=== PATIENT | male | born 1990 | race Caucasian/White ===

== ENCOUNTER 2019-12-29 12:48 | Emergency (ER) | payer SELFPAY ==
[2019-12-29 12:52] VITALS: BP 143/79; PULSE 76; RESP 14; TEMP 36.8; O2SAT 97; BMI 25.0
[2019-12-29 13:02] VITALS: BP 95/57; PULSE 71; RESP 18; TEMP 36.9; O2SAT 95
--- NOTE | 2019-12-29 13:04 | PC.NURSE ---
STATES BRIGHT RED BLOOD STOOLS FOR ONE WEEK. CRAMPING, THEN HAVE A BM. NO RELIEF.
--- NOTE | 2019-12-29 13:07 | CTR_ITS ---
PROCEDURE INFORMATION: Exam: CT Abdomen And Pelvis With Contrast Exam date and time: 12/29/2019 1:27 PM Age: 29 years old Clinical indication: Abdominal pain; Generalized; Patient HX: C/O mid abd pain/cramping w bright red stool intermittent x 2 month worsening last week; Additional info: Abd pain. Gi bleeding TECHNIQUE: Imaging protocol: Computed tomography of the abdomen and pelvis with intravenous contrast. Radiation optimization: All CT scans at this facility use at least one of these dose optimization techniques: automated exposure control; mA and/or kV adjustment per patient size (includes targeted exams where dose is matched to clinical indication); or iterative reconstruction. Contrast material: OMNI 300; Contrast volume: 95 ml; Contrast route: 20G; COMPARISON: No relevant prior studies available. RADIATION DOSE METRICS: Total DLP: 797.52 mGy-cm FINDINGS: Liver: Normal. No mass. Gallbladder and bile ducts: Normal. No calcified stones. No ductal dilation. Pancreas: Normal. No ductal dilation. Spleen: One or more accessory splenules. 13.3 cm borderline to mild splenomegaly. Adrenals: Normal. No mass. Kidneys and ureters: Normal. No hydronephrosis. Stomach and bowel: Jejunal bowel wall thickening consistent with moderate to severe jejunitis. Appendix: No evidence of appendicitis. Intraperitoneal space: Unremarkable. No free air. No significant fluid collection. Vasculature: Unremarkable. No abdominal aortic aneurysm. Lymph nodes: Unremarkable. No enlarged lymph nodes. Bladder: Unremarkable as visualized. Reproductive: Unremarkable as visualized. Bones/joints: Mild posterior central disc protrusion at L4-L5. Soft tissues: Unremarkable. CT/CT abdomen pelvis w con* [id number] IMPRESSION: 1. 13.3 cm borderline to mild splenomegaly. 2. Jejunal bowel wall thickening consistent with moderate to severe jejunitis. Radiation Dose CTDIVOL = (mGy): DLP = 797.52 (mGy-cm)
[2019-12-29] MEDS: iohexol 300 mg/mL 100 mL Btl IV (13:43)
[2019-12-29 13:44] LABS: Basophils # 0.1 10^3/uL (0.0-0.1); Basophils % 0.7 %; Eosinophils % 0.4 %; Hematocrit 47.2 % (42.0-52.0); Hemoglobin 15.6 g/dL (11.7-16.6); Lymphocytes # 1.2 10^3/uL (0.8-4.8); Mean Corpuscular HGB Conc 33.1 g/dL (30.0-36.0); Mean Corpuscular Hemoglobin 30.2 pg (28.0-34.0); Mean Corpuscular Volume 91.5 fL (80-94); Mean Platelet Volume 10.4 fL (7.4-10.4); Monocytes # 0.7 10^3/uL (0.2-0.9); Monocytes % 7.1 %; Neutrophils # 7.6 10^3/uL (1.8-7.7); Neutrophils % 79.4 %; Nucleated Red Blood Cells % 0 %; Platelet Count 250 10^3/cmm (130-400); Red Blood Count 5.16 10^6/uL (4.1-5.3); Red Cell Distribution Width 12.5 % (12.1-15.1); White Blood Count 9.6 10^3/uL (4.0-10.0)
[2019-12-29 13:45] LABS: Partial Thromboplastin Time 24.7 SECONDS (23.9-36.7)
[2019-12-29 13:55] LABS: Alanine Aminotransferase 14 U/L (0-41); Albumin Level 4.5 g/dL (3.5-5.2); Alkaline Phosphatase 55 IU/L (40-130); Aspartate Amino Transferase 24 U/L (0-40); Blood Urea Nitrogen 13 mg/dL (6-20); Calcium 10.2 mg/dL (8.5-10.5); Carbon Dioxide 26 mmol/L (22-29); Chloride 98 mmol/L (98-107); Globulin 3.1 g/dL (1.3-4.6); Glomerular Filtration Rate 87.7 mL/min (90-130); Glucose 104 mg/dL (65-115); Lipase 14 U/L (13-60); Osmolality Calculated 278 mOsm/kg (285-295); Sodium 136 mmol/L (136-145); Total Bilirubin 1.8 mg/dL (0.15-1.2); Total Protein 7.6 g/dL (6.6-8.7)
[2019-12-29] MEDS: ondansetron 2 mg/ML SDV 2 mL 8 MG IVP (14:15)
[2019-12-29] MEDS: metroNIDAZOLE 500 MG Tablet PO (14:45)
[2019-12-29] MEDS: ciprofloxacin 500 mg Tablet PO (14:45)
[2019-12-29] MEDS: dexamethasone 4 mg/mL INJ 8 MG IVP (14:45)
[2019-12-29 14:52] VITALS: BP 113/64; PULSE 60; RESP 16; O2SAT 97
[2019-12-29 14:58] VITALS: BP 113/64; PULSE 60; RESP 16; O2SAT 97
[2019-12-29 15:02] LABS: Erythrocyte Sedimentation Rate 3 mm/hr (0-10)
--- NOTE | 2019-12-29 15:11 | W.ED.GIBLEED ---
HPI - GI Bleed General: Chief complaint: GI Bleed Stated complaint: rectal bleeding Time Seen by Provider: 12/29/19 13:04 History of Present Illness: HPI Narrative: 29-year-old male complains of generalized belly pain, mainly in his epigastrium, with bloody stool for the last week. He says his belly is hurt on and off for the last month. He has had a lot of increased stress. He is noticed red blood with stool for the last week consistently. Mainly on the paper. MD complaint: blood on toilet paper and gross hematochezia (mild) Onset (ago): week(s) Pain Consistency: intermittent Severity: moderate Relieving factors: none Exacerbating factors: none Associated symptoms: Reports nausea; Denies epistaxis, fever(s), headache(s), rash or vomiting Review of Systems Const: Denies: fever(s) Eyes: Denies: change in vision ENMT: Denies: bleeding gums, epistaxis or sinus pain Card: Denies: chest pain, palpitations, irregular heart rhythm or edema Resp: Denies: dyspnea, productive cough, non-productive cough or wheezing GI: Reports: nausea; Denies: vomiting : Denies: difficulty urinating, dysuria or hematuria Musc: Denies: neck pain or back pain Skin/Breast: Denies: rash, pruritus or erythema Neuro: Denies: headache(s), dizziness or vertigo Psych: Denies: anxiety PFSH ED PFSH: Social History Smoking and tobacco status: current every day smoker Physical Exam Const: GENERAL APPEARANCE: well developed ORIENTATION/CONSCIOUSNESS: Yes oriented to person, Yes oriented to place and Yes oriented to time HENMT: COMMON NORMALS: external ears normal and Normal external nose present FACE & SINUS: normal facial exam NOSE: Normal external nose present and No nasal discharge present EXTERNAL EAR: Yes external ears normal MOUTH: tongue normal Eye: COMMON NORMALS: Equal, round and reactive pupils present, EOMs intact bilaterally and conjunctivae normal EYELID: eyelids normal CONJUNCTIVA: Yes conjunctivae normal PUPIL: Yes Equal, round and reactive pupils present Neck/C-Spine: GENERAL: No tracheal deviation Chest: COMMONS NORMALS: normal inspection of the chest CHEST: No tenderness Resp: COMMON NORMALS: clear to auscultation bilaterally EFFORT & INSPECTION: No tachypneic, No respiratory distress, No retractions, No uses accessory muscles and No tracheal deviation AUSCULTATION: clear to auscultation bilaterally, no rhonchi, no wheezes and lung sounds not diminished Cardio: COMMON NORMALS: regular rate and regular rhythm RATE: regular rate RHYTHM: regular rhythm HEART SOUNDS: no murmurs PERIPHERAL PULSES: radial pulses present GI: INSPECTION: No abdominal distension AUSCULTATION: No Hyperactive bowel sounds present and No Hypoactive bowel sounds present PALPATION: Yes Tenderness to palpation present (GI) (epigastric), No Guarding due to palpation present (GI) and No Rigid due to palpation PERCUSSION: no dullness to percussion and no tympanic to percussion Neuro: SENSORIUM/ORIENTATION: Yes oriented to person, Yes oriented to place and Yes oriented to time Psych: COMMON NORMALS: mental status grossly normal Skin: COMMON NORMALS: no rashes or lesions noted GENERAL SKIN EXAM: no rashes or lesions noted Course Vital Signs: Vital signs: Vital Signs Temperature 98.4 F 12/29/19 13:02 Pulse Rate 60 12/29/19 14:58 Respiratory Rate 16 12/29/19 14:58 Blood Pressure 113/64 12/29/19 14:58 Pulse Oximetry 97 12/29/19 14:58 MDM - GI Bleed MDM Narrative: Medical decision making narrative: 29-year-old male with red blood in stool. No active bleeding here. Normal rectal exam. White count is 9.6. Hemoglobin is 15.6. Other laboratory including CRP is negative. He has focal jejunitis on CT scan without perforation. Could be infectious versus inflammatory. Lab Data: Labs: Lab Results 12/29/19 12/29/19 12/29/19 Range/Units 13:17 13:17 13:17 WBC 9.6 (4.0-10.0) 10^3/ uL RBC 5.16 (4.1-5.3) 10^6/u L Hgb 15.6 (11.7-16.6) g/dL Hct 47.2 (42.0-52.0) % MCV 91.5 (80-94) fL MCH 30.2 (28.0-34.0) pg MCHC 33.1 (30.0-36.0) g/dL RDW 12.5 (12.1-15.1) % Plt Count 250 (130-400) 10^3/c mm MPV 10.4 (7.4-10.4) fL Neut % (Auto) 79.4 % Lymph % (Auto) 12.0 % [place] % (Auto) 7.1 % Eos % (Auto) 0.4 % Baso % (Auto) 0.7 % Neut # (Auto) 7.6 (1.8-7.7) 10^3/u L Lymph # (Auto) 1.2 (0.8-4.8) 10^3/u L [place] # (Auto) 0.7 (0.2-0.9) 10^3/u L Eos # (Auto) 0.0 (0.0-0.8) 10^3/u L Baso # (Auto) 0.1 (0.0-0.1) 10^3/u L Nucleated RBC % (a uto) 0 % Nucleated RBCs # 0.0 /100WBC ESR 3 (0-10) mm/hr PT 13.50 H (10.5-13.3) SECO NDS INR 1.00 (0.8-1.2) APTT 24.7 (23.9-36.7) SECO NDS Sodium (136-145) mmol/L Potassium (3.5-5.1) mmol/L Chloride (98-107) mmol/L Carbon Dioxide (22-29) mmol/L Anion Gap (5-19) BUN (6-20) mg/dL Creatinine (0.7-1.2) mg/dL GFR Calculation (90-130) mL/min Glucose (65-115) mg/dL Calculated Osmolal ity (285-295) mOsm/k g Calcium (8.5-10.5) mg/dL Total Bilirubin (0.15-1.2) mg/dL AST (0-40) U/L ALT (0-41) U/L Alkaline Phosphata se (40-130) IU/L C-Reactive Protein (0.0-4.9) mg/L Total Protein (6.6-8.7) g/dL Albumin (3.5-5.2) g/dL Globulin (1.3-4.6) g/dL Lipase (13-60) U/L 12/28/20 Range/Units 13:17 WBC (4.0-10.0) 10^3/ uL RBC (4.1-5.3) 10^6/u L Hgb (11.7-16.6) g/dL Hct (42.0-52.0) % MCV (80-94) fL MCH (28.0-34.0) pg MCHC (30.0-36.0) g/dL RDW (12.1-15.1) % Plt Count (130-400) 10^3/c mm MPV (7.4-10.4) fL Neut % (Auto) % Lymph % (Auto) % [place] % (Auto) % Eos % (Auto) % Baso % (Auto) % Neut # (Auto) (1.8-7.7) 10^3/u L Lymph # (Auto) (0.8-4.8) 10^3/u L [place] # (Auto) (0.2-0.9) 10^3/u L Eos # (Auto) (0.0-0.8) 10^3/u L Baso # (Auto) (0.0-0.1) 10^3/u L Nucleated RBC % (a uto) % Nucleated RBCs # /100WBC ESR (0-10) mm/hr PT (10.5-13.3) SECO NDS INR (0.8-1.2) APTT (23.9-36.7) SECO NDS Sodium 136 (136-145) mmol/L Potassium 4.0 (3.5-5.1) mmol/L Chloride 98 (98-107) mmol/L Carbon Dioxide 26 (22-29) mmol/L Anion Gap 16.0 (5-19) BUN 13 (6-20) mg/dL Creatinine 1.0 (0.7-1.2) mg/dL GFR Calculation 87.7 L (90-130) mL/min Glucose 104 (65-115) mg/dL Calculated Osmolal ity 278 L (285-295) mOsm/k g Calcium 10.2 (8.5-10.5) mg/dL Total Bilirubin 1.8 H (0.15-1.2) mg/dL AST 24 (0-40) U/L ALT 14 (0-41) U/L Alkaline Phosphata se 55 (40-130) IU/L C-Reactive Protein 1.0 (0.0-4.9) mg/L Total Protein 7.6 (6.6-8.7) g/dL Albumin 4.5 (3.5-5.2) g/dL Globulin 3.1 (1.3-4.6) g/dL Lipase 14 (13-60) U/L Discharge Plan Discharge Patient Disposition: Home, Self-Care Clinical Impression: Jejunitis Condition: Stable Prescriptions: New Cipro 500 mg tablet 500 mg PO Q12H Qty: 14 RF: 0 Flagyl 500 mg tablet 500 mg PO Q8H 7 Days Qty: 21 RF: 0 Medrol (Bertin) 4 mg tablets,dose pack See Rx Instructions .ROUTE .COMPLEX Qty: 21 RF: 0 No Action No Known Home Medications RF: 0 Discharge Orders: Discharge Order (Routine); Ordered 12/29/19 Ordered By: Jg Patton Referrals: Jennifer Good MD [Family Provider] - Bryn Regan FNP [Primary Care Provider] - Discharge Diet: Usual diet Discharge Activity: Increase activity as tolerated Patient Instructions: Infectious Colitis (ED) Activity Restrictions/Additional Instructions: Return for worsening pain despite treatment, worsening bleeding with stool, especially passing large clots, fever greater than 100 despite antibiotics, other concerning symptoms. Discharge Date/Time: 12/29/19 14:58 Coding Level of Care Code ED Extracorporeal Circulation Specialist for Loy Billingsley
[2019-12-29 15:16] LABS: Add Urine Microscopic? YES; Bilirubin Urine Neg (NEGATIVE); Blood Urine Trace (Negative); Glucose Urine UA Norm (Normal); Ketones Urine Negative (Negative); Leukocyte Esterase Urine Negative (Negative); Nitrate Urine Negative (Negative); Protein Urine Neg (Negative); Sulfosalicylic Acid Urine Negative (Negative); Urine Appearance Clear (CLEAR); Urine Color Yellow (Yellow); Urobilinogen Urine Norm (Negative); pH Urine 8 (5-7)
[2019-12-29 15:17] LABS: Add Urine Culture? No; Mucus Urine TRACE
== END 2019-12-29 14:58 | disposition home or self-care (01) ==
PROVIDERS: Emergency Provider Emergency Medicine; Family Provider Pediatrics Adolescent Medicine; PCP Nurse Practitioner Family
DX: K52.9 Noninfective gastroenteritis and colitis, unspecified (principal); F17.210 Nicotine dependence, cigarettes, uncomplicated
CPT/HCPCS: 12345; 74177; 80053; 81001; 83690; 85025; 85610; 85651; 85730; 86140; 96374; 96375; 99282; 99283; J1100; J2405; Q9967

== ENCOUNTER 2020-02-18 15:23 | Inpatient (IN) | payer SELFPAY ==
[2020-02-18 15:31] VITALS: BP 121/73; PULSE 60; RESP 14; TEMP 37.3; O2SAT 98; BMI 24.1
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
--- NOTE | 2020-02-18 15:48 | W.ED.PSYCH ---
HPI - Psych General: Chief Complaint: Psychiatric Symptoms Stated Complaint: mhe Time Seen by Provider: 02/18/20 15:44 Source: patient Mode of arrival: ambulatory Limitations: no limitations History of Present Illness: HPI Narrative: Lester is a 29-year-old male who comes in complaining of suicidal ideation. He states he feels overwhelmed by his life circumstances and has thoughts about wanting to kill himself. Patient denies any previous attempted previous hospitalization for suicidal ideation. He denies any other complaints or concerns. He states this time he wants to come in and get help because he does not feel safe at home. Review of Systems Const: Denies: fever(s), chills, body aches, fatigue, malaise or diaphoresis Eyes: Denies: change in vision, blurry vision, blind spots, photophobia, eye discharge or eye redness ENMT: Denies: throat pain, odynophagia, hoarseness, swelling of lips/tongue, oral sores, ear or mastoid pain, ear discharge, change in hearing or nasal discharge Card: Denies: chest pain, palpitations, irregular heart rhythm, edema, lightheadedness, syncope, pre-syncope, dyspnea on exertion or orthopnea Resp: Denies: dyspnea, productive cough, non-productive cough, wheezing, hemoptysis or chest congestion GI: Denies: abdominal pain, nausea, vomiting, hematemesis, coffee ground emesis, heartburn, diarrhea, constipation, GI cramping, hematochezia or melena : Denies: flank pain, dysuria, urinary frequency, urinary urgency or hematuria Musc: Denies: neck pain, back pain, extremity pain, extremity swelling, joint pain, joint swelling, joint redness, joint warmth or joint stiffness Skin/Breast: Denies: rash, pruritus, erythema, skin tenderness or jaundice Neuro: Denies: headache(s), numbness in extremities, weakness in extremities, sensory changes, lack of coordination, difficulty walking, dizziness, vertigo, confusion, Slurred speech present or seizure-like activity Vj/Lymph: Denies: easy bruising, easy bleeding, petechiae, purpura or enlarged lymph nodes All/Imm: Denies: urticaria, throat swelling, tongue swelling, facial swelling or acute wheezing PFSH ED PFSH: Medical History ADHD Bipolar affect, depressed Social History Smoking and tobacco status: current every day smoker Physical Exam Const: COMMON NORMALS: no acute distress, patient oriented x3, no limitations, healthy appearing and well nourished GENERAL APPEARANCE: cooperative, well kempt and well developed HENMT: COMMON NORMALS: normocephalic, atraumatic, external ears normal, EAC's normal and Normal external nose present HEAD & SCALP: normal to inspection, normocephalic and atraumatic FACE & SINUS: normal facial exam, face symmetric and other (Left TMJ pain on palpation.) NOSE: Normal external nose present and Normal nares present EXTERNAL EAR: Yes external ears normal EXTERNAL AUDITORY CANAL: EAC's normal MOUTH: Normal oral and palatal mucosa present, lip normal and tongue normal Eye: COMMON NORMALS: Equal, round and reactive pupils present and conjunctivae normal GENERAL EYE: appearance normal, both eyes and all related structures ALIGNMENT: Yes alignment normal PERIORBITAL: periorbital findings normal EYELID: eyelids normal CONJUNCTIVA: Yes conjunctivae normal SCLERA: sclerae normal PUPIL: Yes Equal, round and reactive pupils present Neck/C-Spine: COMMON NORMALS: full ROM, no lymphadenopathy, supple, no meningeal signs and no JVD GENERAL: Yes normal visual inspection and Yes trachea midline Chest: COMMONS NORMALS: normal inspection of the chest and normal palpation of entire chest wall Resp: COMMON NORMALS: normal respiratory effort, No retractions and No use of accessory muscles EFFORT & INSPECTION: Yes able to speak in complete sentences and Yes symmetric chest movement AUSCULTATION: no crackles, no rales, no rhonchi and no wheezes Cardio: COMMON NORMALS: no JVD, regular rate, regular rhythm, S1 normal heart sound present and S2 normal heart sound present RATE: regular rate RHYTHM: regular rhythm HEART SOUNDS: S1 normal heart sound present, S2 normal heart sound present, no click, no gallops, no murmurs, no rubs and abnormal split S2 GI: COMMON NORMALS: Soft to palpation and No hepatosplenomegaly present PALPATION: Yes Soft to palpation, No Tenderness to palpation present (GI), No Guarding due to palpation present (GI), No Rigid due to palpation, Yes No hepatosplenomegaly present, No Hernia present, No Palpable mass present and No Pulsatile mass present : COMMON NORMALS: Yes no CVA tenderness BLADDER/KIDNEY EXAM: Yes no CVA tenderness Back/Pelvis: COMMON NORMALS: no CVA tenderness, thoracic and lumbar spine normal to inspection, no thoracic nor lumbar tenderness and thoraco-lumbar ROM normal Extremity: COMMON NORMALS: normal to inspection, full ROM, capillary refill normal, no joint enlargement, no clubbing, cyanosis or edema and no calf tenderness Neuro: COMMON NORMALS: patient oriented x3, CN's II-XII intact bilaterally, moves all extremities, no focal motor deficits and no sensory deficits noted MENINGEAL SIGNS: Yes no meningeal signs SPEECH: speech normal Psych: COMMON NORMALS: mental status grossly normal, Normal thought process present, cooperative, normal affect, speech normal and activity/motor behavior normal APPEARANCE: Yes well kempt SPEECH: Yes normal speech THOUGHT PROCESS: Normal thought process present Skin: COMMON NORMALS: no rashes or lesions noted, turgor normal, no jaundice, no petechiae and no mottling GENERAL SKIN EXAM: no rashes or lesions noted and turgor normal MDM - Psych MDM Narrative: Medical decision making narrative: The case was reviewed with Dr. Mackey, he agrees to admission to the neuropsychiatric unit for stabilization. Lab Data: Labs: Lab Results 02/18/20 02/18/20 02/18/20 Range/Units 15:53 16:00 16:00 WBC 8.2 (4.0-10.0) 10^3/ uL RBC 5.00 (4.1-5.3) 10^6/u L Hgb 15.3 (11.7-16.6) g/dL Hct 46.1 (42.0-52.0) % MCV 92.2 (80-94) fL MCH 30.6 (28.0-34.0) pg MCHC 33.2 (30.0-36.0) g/dL RDW 12.0 L (12.1-15.1) % Plt Count 262 (130-400) 10^3/c mm MPV 10.1 (7.4-10.4) fL Neut % (Auto) 70.6 % Lymph % (Auto) 20.8 % [place] % (Auto) 6.0 % Eos % (Auto) 1.1 % Baso % (Auto) 1.1 % Neut # (Auto) 5.80 (1.8-7.7) 10^3/u L Lymph # (Auto) 1.7 (0.8-4.8) 10^3/u L [place] # (Auto) 0.5 (0.2-0.9) 10^3/u L Eos # (Auto) 0.1 (0.0-0.8) 10^3/u L Baso # (Auto) 0.1 (0.0-0.1) 10^3/u L Nucleated RBC % (a uto) 0 % Nucleated RBCs # 0.0 /100WBC Sodium 139 (136-145) mmol/L Potassium 3.8 (3.5-5.1) mmol/L Chloride 103 (98-107) mmol/L Carbon Dioxide 28 (22-29) mmol/L Anion Gap 11.8 (5-19) BUN 12 (6-20) mg/dL Creatinine 0.9 (0.7-1.2) mg/dL GFR Calculation 99.1 (90-130) mL/min Glucose 103 (65-115) mg/dL Calculated Osmolal ity 284 L (285-295) mOsm/k g Calcium 9.0 (8.5-10.5) mg/dL Total Bilirubin 1.1 (0.15-1.2) mg/dL AST 15 (0-40) U/L ALT 10 (0-41) U/L Alkaline Phosphata se 50 (40-130) IU/L Total Protein 6.9 (6.6-8.7) g/dL Albumin 4.4 (3.5-5.2) g/dL Globulin 2.5 (1.3-4.6) g/dL TSH 0.71 (0.27-4.20) uIU/ mL Salicylates < 0.3 L (3-10) mg/dL Urine Opiates Scre en Negative (Negative) ng/mL Acetaminophen < 5.0 L (10-30) ug/mL Ur Barbiturates Sc reen Negative (Negative) ng/mL Ur Phencyclidine S crn Negative (Negative) ng/mL Ur Amphetamines Sc reen Positive H (Negative) ng/mL U Benzodiazepines Scrn Negative (Negative) ng/mL Urine Cocaine Scre en Negative (Negative) ng/mL U Marijuana (THC) Screen Positive H (Negative) ng/mL Ethyl Alcohol < 10 (0-10) mg/dL Discharge Plan Discharge Patient Disposition: Admitted As Inpatient Admit Provider: Mick Mackey Clinical Impression: Suicidal ideation Condition: Stable Discharge Date/Time: 02/18/20 17:34 Coding Level of Care Code ED Recreational Programs Director for Loy Fwd Exam Comprehensive
[2020-02-18 16:06] LABS: Basophils # 0.1 10^3/uL (0.0-0.1); Basophils % 1.1 %; Eosinophils # 0.1 10^3/uL (0.0-0.8); Eosinophils % 1.1 %; Hematocrit 46.1 % (42.0-52.0); Hemoglobin 15.3 g/dL (11.7-16.6); Lymphocytes # 1.7 10^3/uL (0.8-4.8); Lymphocytes % 20.8 %; Mean Corpuscular HGB Conc 33.2 g/dL (30.0-36.0); Mean Corpuscular Hemoglobin 30.6 pg (28.0-34.0); Mean Corpuscular Volume 92.2 fL (80-94); Mean Platelet Volume 10.1 fL (7.4-10.4); Monocytes # 0.5 10^3/uL (0.2-0.9); Neutrophils % 70.6 %; Nucleated Red Blood Cells % 0 %; Platelet Count 262 10^3/cmm (130-400); White Blood Count 8.2 10^3/uL (4.0-10.0)
[2020-02-18 16:26] LABS: Amphetamines Screen Urine Positive (Negative); Barbiturates Screen Urine Negative (Negative); Benzodiazepines Screen Urine Negative (Negative); Cocaine Screen Urine Negative (Negative); Opiate Screen Urine Negative (Negative); PCP Screen Urine Negative (Negative); THC Screen Urine Positive (Negative)
[2020-02-18 16:34] LABS: Alanine Aminotransferase 10 U/L (0-41); Albumin Level 4.4 g/dL (3.5-5.2); Alkaline Phosphatase 50 IU/L (40-130); Anion Gap 11.8 (5-19); Aspartate Amino Transferase 15 U/L (0-40); Blood Urea Nitrogen 12 mg/dL (6-20); Carbon Dioxide 28 mmol/L (22-29); Chloride 103 mmol/L (98-107); Globulin 2.5 g/dL (1.3-4.6); Glomerular Filtration Rate 99.1 mL/min (90-130); Glucose 103 mg/dL (65-115); Osmolality Calculated 284 mOsm/kg (285-295); Potassium 3.8 mmol/L (3.5-5.1); Sodium 139 mmol/L (136-145); Thyroid Stimulating Hormone 0.71 uIU/mL (0.27-4.20); Total Bilirubin 1.1 mg/dL (0.15-1.2); Total Protein 6.9 g/dL (6.6-8.7)
[2020-02-18 16:58] LABS: Acetaminophen < 5.0 ug/mL (10-30); Alcohol Level < 10 mg/dL (0-10); Salicylate < 0.3 mg/dL (3-10)
[2020-02-18 17:32] VITALS: BP 124/87; PULSE 72; RESP 18; O2SAT 98
[2020-02-18 20:05] VITALS: BP 109/61; PULSE 57; RESP 16; TEMP 37; O2SAT 92
[2020-02-19 06:00] VITALS: BP 120/80; PULSE 86; RESP 13; TEMP 36.8; O2SAT 96
[2020-02-19] MEDS: acetaminophen 325 mg Tablet 650 MG PO ×2 (06:08→19:30)
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
[2020-02-19 14:00] VITALS: BP 114/59; PULSE 53; RESP 18; TEMP 36.5; O2SAT 99
[2020-02-19] MEDS: ARIPiprazole 10 mg Tablet 5 MG PO (16:46)
[2020-02-19 20:06] VITALS: BP 126/85; PULSE 78; RESP 16; TEMP 36.5; O2SAT 94
[2020-02-20 06:00] VITALS: BP 137/82; PULSE 82; RESP 15; TEMP 36.9; O2SAT 97
[2020-02-20] MEDS: ARIPiprazole 10 mg Tablet PO (08:10)
[2020-02-20] MEDS: nicotine 2 mg Gum BUCCAL (10:40)
--- NOTE | 2020-02-20 11:57 | PM.NPN ---
Subjective NPU Subjective: Interval history: Lester presents today reporting that he is open to medication. He continued to focus on something for focus yesterday. Later today, he agreed to a dose of Abilify and see how he did with it. It was a half dose. He reported it was not a problem, so we again discussed the risks, benefits, and alternatives of using the Abilify as a regular medication and he understood and agreed to proceed as is documented in this note. He continued to talk about the possibility of sober living treatment and today he was going to talk to the treatment team about what possibilities exist given his insurance situation. He reports he is eating okay. His sleep is a little tough. Mental Status Exam MSE Comments: This is a well-nourished, well-developed, white male, with adequate dress, grooming, and eye contact. No abnormal movements except for psychomotor retardation. Cooperative with exam in no acute distress. Speech was decreased rate and volume. Mood described as better, affect less odd. Thought process, less disorganized. Thought content: The patient endorsed suicidal ideation but denied homicidal ideation. There were no delusions reported, but he did have clear paranoia. He denied auditory or visual hallucinations, but he says he has had them. Attention and concentration were improving, and memory appear was more reliable, but none were formally tested. He is alert and oriented times three. Insight and judgment are limited but improving. Impulse control is impaired. Vitals/I&O/Wt Last Vital Signs Temp 98.5 F 02/20/20 06:00 Pulse 82 02/20/20 06:00 Resp 15 02/20/20 06:00 BP 137/82 02/20/20 06:00 Pulse Ox 97 02/20/20 06:00 Weight last 48 hrs Weight 83.007 kg Data NPU : 02/18/20 16:00 02/18/20 16:00 A&P Additional A&P Information (1) ADHD: (2) Bipolar affect, depressed: (3) Methamphetamine dependence: (4) Psychosis: (5) Suicidal ideation: Additional A&P Information This is a 29 year old, white male, with psychosis, methamphetamine use, and suicidal thinking, who presents confused but seeking treatment. Continue current medication. Start Abilify 10 mg by mouth every morning Encourage individual, group, and milieu therapy. Continue q 15-minute checks for safety. Will encourage him to attend sober living treatment at the highest level of care to which he is willing to commit. Involuntary Hold Information 96 Hour Hold: 96 Hour Involuntary Admission: No Attestations NPU Medical Necessity Statement*: Inpatient hospitalization is medically necessary, and the clinically appropriate intervention at this time. We will monitor medication and make adjustments as indicated. Likely length of stay 3-5 days. 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
[2020-02-20 14:00] VITALS: BP 116/67; PULSE 77; RESP 18; TEMP 37; O2SAT 96
[2020-02-20 21:28] VITALS: BP 109/71; PULSE 92; RESP 20; TEMP 36.9; O2SAT 99
[2020-02-21 05:03] VITALS: BP 109/71; PULSE 92; RESP 20; TEMP 36.9; O2SAT 99
[2020-02-21 06:14] VITALS: BP 112/72; PULSE 73; RESP 17; TEMP 37.1; O2SAT 98
[2020-02-21] MEDS: ARIPiprazole 10 mg Tablet PO (09:30)
--- NOTE | 2020-02-21 13:49 | PM.NPN ---
Subjective NPU Subjective: Interval history: Lester presents today reporting that he feels really well on the medication. He is certainly able to communicate much better than a couple days ago. He is able to navigate the unit and interact with others showing significant resolution in his disorganization. He is working with the child protective services social worker for a couple different options for rehab. It looks like one is becoming quite fruitful, and at least it appears that he will be able to interview and likely go there tomorrow. He is excited about the opportunity. He has still been in communication with his supports including his brother in [place]. He reports he is eating and sleeping well. Mental Status Exam MSE Comments: This is a well-nourished, well-developed, white male, with adequate dress, grooming, and eye contact. No abnormal movements except for improving psychomotor retardation. Cooperative with exam in no acute distress. Speech was more normal rate and volume. Mood described as pretty good, affect congruent. Thought process, organized. Thought content: The patient denied suicidal or homicidal ideation. There were no delusions reported, no significant paranoia noted or other delusional processes. He denied auditory or visual hallucinations. Attention and concentration were improving, and memory was more reliable, but none were formally tested. He is alert and oriented times three. Insight and judgment are improving. Impulse control is limited. Vitals/I&O/Wt Last Vital Signs Temp 98.5 F 02/21/20 05:03 Pulse 92 02/21/20 05:03 Resp 20 H 02/21/20 05:03 BP 109/71 02/21/20 05:03 Pulse Ox 99 02/21/20 05:03 Data NPU : 02/18/20 16:00 02/18/20 16:00 A&P Additional A&P Information (1) ADHD: (2) Bipolar affect, depressed: (3) Methamphetamine dependence: (4) Psychosis: (5) Suicidal ideation: This is a 29 year old, white male, with psychosis, methamphetamine use, and suicidal thinking, who presents confused but seeking treatment. Continue current medication. Encourage individual, group, and milieu therapy. Continue q 15-minute checks for safety. Will encourage him to attend sober living treatment at the highest level of care to which he is willing to commit. Involuntary Hold Information 96 Hour Hold: 96 Hour Involuntary Admission: No Attestations NPU Medical Necessity Statement*: Inpatient hospitalization is medically necessary, and the clinically appropriate intervention at this time. We will monitor medication and make adjustments as indicated. Likely length of stay 1-3 days. 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
[2020-02-21 14:00] VITALS: BP 105/70; PULSE 97; RESP 18; TEMP 36.7; O2SAT 96
[2020-02-21 20:28] VITALS: BP 118/86; PULSE 99; RESP 21; TEMP 36.9; O2SAT 97
[2020-02-21] MEDS: hyDROXYzine 25 mg Capsule 50 MG PO (21:12)
[2020-02-21] MEDS: trazodone 50 mg Tablet PO (21:13)
--- NOTE | 2020-02-22 04:19 | PC.NURSE ---
pt given PRN trazodone and vistaril at HS. no behavior issues noted.
[2020-02-22 06:00] VITALS: BP 102/74; PULSE 101; RESP 20; TEMP 36.9; O2SAT 95
[2020-02-22] MEDS: ARIPiprazole 10 mg Tablet PO (08:24)
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
[2020-02-22 10:49] VITALS: BP 102/74; PULSE 101; RESP 20; TEMP 36.9; O2SAT 95
--- NOTE | 2020-02-22 16:11 | PC.RESP ---
SMOKING CESSATION INFORMATION SENT TO PATIENT.
== END 2020-02-22 11:23 | disposition home or self-care (01) | DRG 885 ==
LOC: ER 16:12 → NP 17:13
PROVIDERS: Emergency Medicine; Admitting Provider Psychiatry & Neurology Psychiatry; Visit Provider Psychiatry & Neurology Psychiatry
DX: F23 Brief psychotic disorder (principal); R45.851 Suicidal ideations; F15.20 Other stimulant dependence, uncomplicated; F90.9 Attention-deficit hyperactivity disorder, unspecified type; F31.9 Bipolar disorder, unspecified; Z91.5 Personal history of self-harm; F17.210 Nicotine dependence, cigarettes, uncomplicated
CPT/HCPCS: 12345; 36415; 70486; 80053; 80306; 80307; 84443; 85025; 99284; G0378

== ENCOUNTER 2020-06-18 18:43 | Emergency (ER) | payer SELFPAY ==
[2020-06-18 19:13] VITALS: BP 113/71; PULSE 108; RESP 17; TEMP 36.8; O2SAT 97; BMI 23.7
--- NOTE | 2020-06-18 19:49 | XR_ITS ---
WS: [id number] Exam: XR chest 2V* [id number] Date/Time of Exam: 06/18/2020 8:00 PM Reason For Exam: cough/congestion No priors. Findings: The lungs are clear and fully expanded. Costophrenic angles are sharp. No infiltrates. Bronchovascula r relief appears normal. Cardiac silhouette is unremarkable. Bony elements are intact. XR/XR chest 2V* [id number] IMPRESSION: Unremarkable chest radiograph.
--- NOTE | 2020-06-18 19:51 | ED_ITS ---
HPI - General Adult General: Chief complaint: General Medical Stated complaint: SORE THROAT/NOT FEELING WELL Time Seen by Provider: 06/18/20 19:32 Source: patient Mode of arrival: ambulatory Limitations: no limitations History of Present Illness: HPI narrative: 30-year-old male patient presents to the emergency department with 2-day history of sore throat, swollen lymph nodes under the chin, cough with productive sputum. He is a 1 pack-a-day smoker. Reports chills but has not taken his temp. He denies contact with Covid positive individuals. Denies nausea vomiting. Onset (ago): day(s) (2) Severity: moderate Pain Consistency: constant Relieving factors: none Exacerbating factors: none Associated symptoms: Reports cough and fevers/chills; Deny chest pain, diaphoresis, dyspnea, headache(s), malaise, nausea, rash, palpitations or vomiting Treatments prior to arrival: none Review of Systems General: Reports: 10 or more systems reviewed and unremarkable except in HPI and below Const: Reports: chills; Denies: fever(s), body aches, fatigue, malaise or diaphoresis Eyes: Denies: blurry vision or eye redness ENMT: Reports: throat pain; Denies: hoarseness, swelling of lips/tongue, dental pain, disequilibrium, nasal discharge or nasal congestion Card: Denies: chest pain, palpitations or irregular heart rhythm Resp: Reports: productive cough and chest congestion; Denies: dyspnea, non-productive cough, wheezing or hemoptysis GI: Denies: abdominal pain, nausea or vomiting : Denies: dysuria Musc: Denies: back pain Skin/Breast: Denies: rash or pruritus Neuro: Denies: headache(s), weakness in extremities or behavioral changes Psych: Denies: anxiety or depression Vj/Lymph: Denies: easy bruising PFSH ED PFSH: Medical History (Updated 06/18/20 @ 21:30 by LUCA Mejia) ADHD Bipolar affect, depressed Social History Smoking and tobacco status: current every day smoker Physical Exam Const: COMMON NORMALS: no acute distress, patient oriented x3, healthy appearing and alert GENERAL APPEARANCE: cooperative, comfortable and well hydrated HENMT: COMMON NORMALS: normocephalic, atraumatic, EAC's normal, TM's normal bilaterally, Normal external nose present and moist oral mucous membranes HEAD & SCALP: normocephalic and atraumatic FACE & SINUS: normal facial exam, sinuses nontender and face symmetric NOSE: Normal external nose present EXTERNAL AUDITORY CANAL: EAC's normal TYMPANIC MEMBRANE: TM's normal bilaterally THROAT: uvula midline and posterior oropharynx abnormal erythema Eye: COMMON NORMALS: Equal, round and reactive pupils present and EOMs intact bilaterally GENERAL EYE: appearance normal, both eyes and all related structures PUPIL: Yes Equal, round and reactive pupils present Neck/C-Spine: COMMON NORMALS: full ROM and no lymphadenopathy GENERAL: Yes normal visual inspection and Yes trachea midline CERVICAL SPINE: Yes cervical ROM normal Lymph: LYMPHATIC: lymphadenopathy (Subtonsillar bilateral) Chest: COMMONS NORMALS: normal inspection of the chest and normal palpation of entire chest wall Resp: COMMON NORMALS: normal respiratory effort and clear to auscultation bilaterally AUSCULTATION: clear to auscultation bilaterally Cardio: COMMON NORMALS: regular rhythm, S1 normal heart sound present, S2 normal heart sound present and Peripheral pulses 2+ throughout RHYTHM: regular rhythm HEART SOUNDS: S1 normal heart sound present and S2 normal heart sound present PERIPHERAL PULSES: Peripheral pulses 2+ throughout GI: COMMON NORMALS: Normal to inspection, nondistended, normoactive bowel sounds present, Soft to palpation and non-tender INSPECTION: Yes normal to inspection PALPATION: Yes Soft to palpation : COMMON NORMALS: Yes no CVA tenderness BLADDER/KIDNEY EXAM: Yes no CVA tenderness Back/Pelvis: COMMON NORMALS: no CVA tenderness and thoracic and lumbar spine normal to inspection Extremity: COMMON NORMALS: normal to inspection and capillary refill normal Neuro: COMMON NORMALS: patient oriented x3 and no focal motor deficits SENSORIUM/ORIENTATION: Yes alert Psych: COMMON NORMALS: mental status grossly normal, Normal thought process present and cooperative ACTIVITY/MOTOR BEHAVIOR: Yes appropriate eye contact THOUGHT PROCESS: Normal thought process present Skin: COMMON NORMALS: no rashes or lesions noted and turgor normal GENERAL SKIN EXAM: no rashes or lesions noted and turgor normal Course Vital Signs: Vital signs: Vital Signs Temperature 98.2 F 06/18/20 19:13 Pulse Rate 108 H 06/18/20 19:13 Respiratory Rate 17 06/18/20 19:13 Blood Pressure 113/71 06/18/20 19:13 Pulse Oximetry 97 06/18/20 19:13 MDM - General Adult Lab Data: Labs: Lab Results 06/18/20 Range/Units 19:57 Group A Strep Rapi d Negative (Negative) Imaging Data^: CXR: My impression: No acute infiltrate noted, radiology interpretation pending. Discharge Plan Discharge Patient Disposition: Home Clinical Impression: Acute bronchitis Qualifiers: Bronchitis organism: other organism Qualified Code(s): J20.8 - Acute bronchitis due to other specified organisms Pharyngitis, acute Qualifiers: Pharyngitis/tonsillitis etiology: other specified organisms Qualified Code(s): J02.8 - Acute pharyngitis due to other specified organisms Condition: Stable Prescriptions: New doxycycline hyclate 100 mg capsule 100 mg PO BID 7 Days Qty: 14 RF: 0 IBU 800 mg tablet 800 mg PO TID PRN (Reason: pain) Qty: 30 RF: 0 No Action trazodone 50 mg Tablet 50 mg PO BEDTIME PRN (Reason: Sleep) 30 Days Qty: 30 RF: 1 aripiprazole 10 mg Tablet 10 mg PO DAILY 30 Days Qty: 30 RF: 1 Discharge Orders: Discharge Order (Routine); Ordered 06/18/20 Ordered By: Stephanie Spring Discharge Diet: GI Soft Discharge Activity: Resume usual activity Patient Instructions: Pharyngitis (ED), Acute Bronchitis (ED) Activity Restrictions/Additional Instructions: Take doxycycline until gone, even if better, take with food to avoid stomach upset Warm salt water gargle several times daily to help with sore throat Return to the emergency department if you develop difficulty breathing, inability to catch your breath, or inability to swallow. Take ibuprofen with food, do not use [id number] medication with exception of Tylenol as duplication of therapy can occur Follow-up with your primary care provider in 2 to 3 days if you are not improving Coding Level of Care Code ED Camp Maintenance Supervisor for Loy Fwd Exam Comprehensive
[2020-06-18 21:15] LABS: Rapid Strep A Test Negative (Negative)
--- NOTE | 2020-06-23 15:30 | DCPLANNER ---
regional retail sales manager had message to speak with patient about getting help with medications. regional retail sales manager spoke with patient, he stated that he did not have any insurance, and is having trouble getting his medications. regional retail sales manager explained to patient that he could take his prescriptions to [facility] pharmacy, and he could get them at a reduced camacho. regional retail sales manager also told patient about [facility] and [facility].
== END 2020-06-18 21:48 | disposition home or self-care (01) ==
PROVIDERS: Emergency Provider Nurse Practitioner Family
DX: J02.8 Acute pharyngitis due to other specified organisms (principal); J20.8 Acute bronchitis due to other specified organisms; F17.210 Nicotine dependence, cigarettes, uncomplicated
CPT/HCPCS: 12345; 71046; 87081; 87880; 99281; 99283

== ENCOUNTER 2020-07-16 11:28 | Emergency (ER) | payer SELFPAY ==
[2020-07-16 11:35] VITALS: BP 107/75; PULSE 75; RESP 18; TEMP 36.6; O2SAT 96; BMI 23.7
--- NOTE | 2020-07-16 11:40 | W.ED.MALEGU ---
HPI - Male Genitourinary General: Chief complaint: Urogenital-Male Stated complaint: Pain in Genital area Time Seen by Provider: 07/16/20 11:40 History of Present Illness: HPI Narrative: Patient is a 30-year-old male comes to the ED with dysuria and testicle pain. Patient says approximately 2 days ago he started developing some pain when he urinates. Today he woke up and says he had some testicular pain/tenderness. He rates the pain an 8 out of 10. He does admit to having sexual encounter with female and he does not know her history. Denies any penile discharge, penile lesions, testicular swelling or bleeding from the meatus. Associated symptoms: Reports dysuria; Deny hematuria, nausea or vomiting Review of Systems Const: Denies: fever(s), chills or fatigue Eyes: Denies: change in vision or eye discomfort ENMT: Denies: throat pain, odynophagia, nasal discharge or nasal congestion Card: Denies: chest pain, palpitations, edema, swelling of feet/ankles, dyspnea on exertion or orthopnea Resp: Denies: dyspnea, productive cough or non-productive cough GI: Denies: abdominal pain, nausea, vomiting, diarrhea, constipation or hematochezia : Reports: dysuria and testicular pain; Denies: flank pain, difficulty urinating or hematuria Musc: Denies: neck pain, back pain or extremity swelling Skin/Breast: Denies: rash or new lesions Neuro: Denies: headache(s), numbness in extremities or weakness in extremities PFS ED PFSH: Medical History ADHD Bipolar affect, depressed Social History Smoking and tobacco status: current every day smoker Physical Exam Const: COMMON NORMALS: no acute distress, patient oriented x3 and alert GENERAL APPEARANCE: cooperative and comfortable HENMT: COMMON NORMALS: normocephalic HEAD & SCALP: normocephalic MOUTH: Normal oral and palatal mucosa present THROAT: posterior oropharynx normal and uvula midline Eye: COMMON NORMALS: Equal, round and reactive pupils present PUPIL: Yes Equal, round and reactive pupils present Neck/C-Spine: COMMON NORMALS: supple GENERAL: Yes normal visual inspection Resp: COMMON NORMALS: normal respiratory effort, No retractions, No use of accessory muscles and clear to auscultation bilaterally AUSCULTATION: clear to auscultation bilaterally Cardio: COMMON NORMALS: regular rate, regular rhythm, S1 normal heart sound present, S2 normal heart sound present, No gallops present (Cardio), No clicks present (Cardio), No murmurs present (Cardio) and Peripheral pulses 2+ throughout RATE: regular rate RHYTHM: regular rhythm HEART SOUNDS: S1 normal heart sound present and S2 normal heart sound present PERIPHERAL PULSES: Peripheral pulses 2+ throughout GI: COMMON NORMALS: Normal to inspection, nondistended, normoactive bowel sounds present, Soft to palpation, non-tender and no masses PALPATION: Yes Soft to palpation : COMMON NORMALS: Yes no CVA tenderness BLADDER/KIDNEY EXAM: Yes no CVA tenderness Back/Pelvis: COMMON NORMALS: no CVA tenderness Extremity: COMMON NORMALS: normal to inspection Neuro: COMMON NORMALS: patient oriented x3 and moves all extremities SENSORIUM/ORIENTATION: Yes alert Skin: GENERAL SKIN EXAM: dry skin Course Vital Signs: Vital signs: Vital Signs Temperature 97.9 F 07/16/20 11:35 Pulse Rate 75 07/16/20 11:35 Respiratory Rate 18 07/16/20 11:35 Blood Pressure 107/75 07/16/20 11:35 Pulse Oximetry 96 07/16/20 11:35 MDM - Male MDM Narrative: Medical decision making narrative: Patient is a 30-year-old male comes to the ED with scrotal pain, dysuria. He also said he could potentially been exposed to STD. Denies any lesions or penile discharge. Ultrasound of the scrotum showed no acute findings. With patient's symptoms of dysuria and the UA showed some white blood cells bacteria and red blood cells you was diagnosed with a UTI. Gonorrhea and Chlamydia testing was ordered but patient was treated prophylactically with Rocephin and azithromycin. He was sent home with a prescription of Bactrim to treat UTI. Return to ED precautions given. Patient told to follow-up with PCP in 7 to 10 days. Patient understood agree with plan. Lab Data: Attestation: I reviewed the patient's lab results. Labs: Lab Results 07/16/20 Range/Units 11:43 Urine Color Yellow (Yellow) Urine Appearance Cloudy (CLEAR) Urine pH 8 H (5-7) Ur Specific Gravit y 1.015 (1.005-1.030) Urine Protein Neg (Negative) Urine Glucose (UA) Norm (Normal) Urine Ketones Negative (Negative) Urine Blood Neg (Negative) Urine Nitrate Negative (Negative) Urine Bilirubin Neg (Negative) Urine Urobilinogen Norm (Negative) mg/dL Ur Leukocyte Gale ase Negative (Negative) Urine RBC 0-4 H (0-2) /hpf Urine WBC 0-4 H (0-5) /hpf Ur Squamous Epith Cells 0-4 H (0-5) /hpf Amorphous Sediment 2+ /hpf Urine Bacteria 1+ H (NONE) /hpf Imaging Data: US: Attestation: I personally reviewed and interpreted this imaging study as follows: Radiologist's impression: Ultrasound of scrotum?prelim report no signs of any epididymitis and testicular blood flow was normal. [facility] [address] [address] Ultrasound Report Signed Patient: Lester Enriquez Unit #: [id number] : 1990 Age/Sex: 30 / M ADM Date: 07/16/20 Loc: ER Room/Bed: Attending Dr: Ordering Provider/Ordering MD: Mateus Finley Date of Service: 07/16/20 Procedure(s): US scrotum [id number] Accession Number(s): [id number] Report Number: [id number] WS: [id number] TESTICULAR ULTRASOUND HISTORY: testicle pain COMPARISON: None available. TECHNIQUE: Real-time and color Doppler imaging or utilized to perform a testicular ultrasound. Right testicle: 4.4 cm x 2.9 cm x 2.3 cm. Normal size and echogenicity. No mass or torsion. Normal color Doppler is present throughout. Systolic and diastolic velocities are both present. No significant hydrocele. Right epididymis: Normal epididymis with no increased vascularity. Left testicle: 4.2 cm x 2.6 cm x 2.0 cm. Normal size and echogenicity. No mass or torsion. Normal color Doppler is present throughout. Systolic and diastolic velocities are both present. No significant hydrocele. Left epididymis: Normal epididymis with no increased vascularity. Small inguinal lymph nodes appear benign. No hernia identified. US/US scrotum [id number] IMPRESSION: NORMAL TESTICULAR ULTRASOUND. Dictated By: Jennifer Lora DO Signed By: Jennifer Lora DO Signed Date/Time: 07/16/20 1234 DD/ 1232 Discharge Plan Discharge Patient Disposition: Home Clinical Impression: Potential exposure to STD UTI (urinary tract infection) Qualifiers: Urinary tract infection type: acute cystitis Hematuria presence: with hematuria Qualified Code(s): N30.01 - Acute cystitis with hematuria Condition: Stable Prescriptions: New Bactrim DS 800-160 mg tablet 1 tab PO BID 5 Days Qty: 10 RF: 0 No Action trazodone 50 mg Tablet 50 mg PO BEDTIME PRN (Reason: Sleep) 30 Days Qty: 30 RF: 1 aripiprazole 10 mg Tablet 10 mg PO DAILY 30 Days Qty: 30 RF: 1 IBU 800 mg tablet 800 mg PO TID PRN (Reason: pain) Qty: 30 RF: 0 Discharge Orders: Discharge ED (Routine); Ordered 07/16/20 Ordered By: Mateus Finley Discharge Diet: Regular Discharge Activity: Resume usual activity Patient Instructions: Gonorrhea - Male, Chlamydia Infection (ED), Sexually Transmitted Diseases (ED), Safe Sex (ED), Urinary Tract Infection in Men (ED) Activity Restrictions/Additional Instructions: Follow-up with medical provider as directed in 7 to 10 days. Take medications as prescribed. Take [id number] ibuprofen or Tylenol for pain. You have been prophylactically treated for gonorrhea and chlamydia with a dose of azithromycin and Rocephin. If gonorrhea and chlamydia test come back positive you have already been treated. Return to the ER or your medical provider if condition worsens. Please read and understand discharge instructions. If any questions, please ask. 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
--- NOTE | 2020-07-16 11:43 | US_ITS ---
WS: [id number] TESTICULAR ULTRASOUND HISTORY: testicle pain COMPARISON: None available. TECHNIQUE: Real-time and color Doppler imaging or utilized to perform a testicular ultrasound. Right testicle: 4.4 cm x 2.9 cm x 2.3 cm. Normal size and echogenicity. No mass or torsion. Normal color Doppler is present throughout. Systolic and diastolic velocities are both present. No significant hydrocele. Right epididymis: Normal epididymis with no increased vascularity. Left testicle: 4.2 cm x 2.6 cm x 2.0 cm. Normal size and echogenicity. No mass or torsion. Normal color Doppler is present throughout. Systolic and diastolic velocities are both present. No significant hydrocele. Left epididymis: Normal epididymis with no increased vascularity. Small inguinal lymph nodes appear benign. No hernia identified. US/US scrotum [id number] IMPRESSION: NORMAL TESTICULAR ULTRASOUND.
[2020-07-16 12:18] LABS: Amorphous Sediment Urine 2+ /hpf; Bacteria Urine 1+ /hpf; Bilirubin Urine Neg (Negative); Blood Urine Neg (Negative); Glucose Urine UA Norm (Normal); Ketones Urine Negative (Negative); Leukocyte Esterase Urine Negative (Negative); Nitrate Urine Negative (Negative); Protein Urine Neg (Negative); RBC Urine 0-4 /hpf (0-2); Specific Gravity, Urine 1.015 (1.005-1.030); Squamous Epithelial Cell Urine 0-4 /hpf (0-5); Urine Appearance Cloudy (CLEAR); Urine Color Yellow (Yellow); Urobilinogen Urine Norm (Negative); WBC Urine 0-4 /hpf (0-5); pH Urine 8 (5-7)
[2020-07-16] MEDS: HYDROcodone-acetaminophen 7.5-325 mg Tablet 1 TAB PO (12:48)
[2020-07-16] MEDS: azithromycin 250 mg Tablet 1000 MG PO (12:48)
== END 2020-07-16 13:17 | disposition home or self-care (01) ==
PROVIDERS: Emergency Provider Physician Assistant
DX: N30.01 Acute cystitis with hematuria (principal); Z20.2 Contact with and (suspected) exposure to infections with a predominantly sexual mode of transmission; F17.210 Nicotine dependence, cigarettes, uncomplicated
CPT/HCPCS: 12345; 76870; 81001; 87491; 87591; 96372; 99282; 99283; J0696; Q0144

== ENCOUNTER 2020-08-10 19:16 | Inpatient (IN) | payer SELFPAY ==
[2020-08-10 19:42] VITALS: BP 120/60; PULSE 83; RESP 14; TEMP 36.6; O2SAT 96; BMI 22.4
--- NOTE | 2020-08-10 20:09 | ECG_ITS ---
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 Measurements Intervals [place] Rate: 60 P: 62 UT: 143 QRS: 80 QRSD: 92 T: 53 QT: 428 QTc: 430 Interpretive Statements SINUS RHYTHM No previous ECG available for comparison Electronically Signed On 08-11-2020 17:32:06 RN UTILIZATION MANAGEMENT UM by Lin Thompson M.D. [id number]
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
[2020-08-10 20:16] LABS: Glucose Urine UA Norm (Normal); Ketones Urine 1+ (Negative); Protein Urine 3+ (Negative); Specific Gravity, Urine 1.025 (1.005-1.030); Urine Appearance Cloudy (CLEAR); Urine Color Yellow (Yellow); pH Urine 5 (5-7)
[2020-08-10 20:17] LABS: Add Urine Microscopic? YES; Bilirubin Urine 1+ (Negative); Blood Urine 3+ (Negative); Leukocyte Esterase Urine 2+ (Negative); Nitrate Urine Negative (Negative); Urobilinogen Urine 1 mg/dL (Negative)
[2020-08-10 20:17] LABS: Basophils # 0.1 10^3/uL (0.0-0.1); Basophils % 1.1 %; Eosinophils # 0.2 10^3/uL (0.0-0.8); Eosinophils % 1.3 %; Hematocrit 44.7 % (42.0-52.0); Lymphocytes # 1.9 10^3/uL (0.8-4.8); Lymphocytes % 16.2 %; Mean Corpuscular HGB Conc 33.6 g/dL (30.0-36.0); Mean Corpuscular Hemoglobin 30.1 pg (28.0-34.0); Mean Corpuscular Volume 89.6 fL (80-94); Mean Platelet Volume 9.8 fL (7.4-10.4); Monocytes % 8.1 %; Neutrophils # 8.78 10^3/uL (1.8-7.7); Neutrophils % 73.1 %; Nucleated Red Blood Cells % 0 %; Platelet Count 312 10^3/cmm (130-400); Red Blood Count 4.99 10^6/uL (4.1-5.3); Red Cell Distribution Width 12.2 % (12.1-15.1)
[2020-08-10 20:22] LABS: Add Urine Culture? Yes; Bacteria Urine 4+ /hpf; Mucus Urine 1+ /hpf; RBC Urine TOO NUMEROUS TO CNT /hpf (0-2); Squamous Epithelial Cell Urine 0-4 /hpf (0-5); WBC Urine TOO NUMEROUS TO CNT /hpf (0-5)
[2020-08-10 20:27] LABS: Alanine Aminotransferase 15 U/L (0-41); Albumin Level 4.4 g/dL (3.5-5.2); Alkaline Phosphatase 61 IU/L (40-130); Anion Gap 13.4 (5-19); Aspartate Amino Transferase 25 U/L (0-40); Blood Urea Nitrogen 11 mg/dL (6-20); Calcium 9.5 mg/dL (8.5-10.5); Carbon Dioxide 27 mmol/L (22-29); Chloride 100 mmol/L (98-107); Creatinine Clr Calc Pharmacy 149.0885; Globulin 3.1 g/dL (1.3-4.6); Glomerular Filtration Rate 112.8 mL/min (90-130); Glucose 112 mg/dL (65-115); Osmolality Calculated 284 mOsm/kg (285-295); Potassium 3.4 mmol/L (3.5-5.1); Sodium 137 mmol/L (136-145); Total Bilirubin 3.5 mg/dL (0.15-1.2); Total Protein 7.5 g/dL (6.6-8.7)
[2020-08-10 20:31] LABS: Acetaminophen < 5.0 ug/mL (10-30); Alcohol Level < 10 mg/dL (0-10); Salicylate < 0.3 mg/dL (3-10)
[2020-08-10] MEDS: azithromycin 250 mg Tablet 1000 MG PO (21:00)
[2020-08-10] MEDS: cefTRIAXone 1,000 MG in lidocaine 1% 2.1 ML 2.5 MG IM (21:01)
[2020-08-10] MEDS: metroNIDAZOLE 500 MG Tablet 2000 MG PO (22:41)
--- NOTE | 2020-08-10 22:46 | PC.NURSE ---
Called report to REGLA Dave in [facility]PU
[2020-08-10 22:57] VITALS: BP 118/65; PULSE 76; RESP 16; TEMP 36.6; O2SAT 96
[2020-08-10 23:00] VITALS: BP 116/72; PULSE 88; RESP 18; TEMP 36.2; O2SAT 97
[2020-08-10] MEDS: hyDROXYzine 25 mg Capsule 50 MG PO (23:11)
[2020-08-10] MEDS: acetaminophen 325 mg Tablet 650 MG PO (23:14)
[2020-08-11 06:00] VITALS: BP 110/56; PULSE 91; RESP 18; TEMP 36.3; O2SAT 95
[2020-08-11] MEDS: acetaminophen 325 mg Tablet 650 MG PO ×2 (12:15→20:15)
--- NOTE | 2020-08-11 13:22 | PC.RESP ---
Smoking Cessation information sent to patient.
[2020-08-11 13:54] LABS: Amphetamines Screen Urine Positive (Negative); Barbiturates Screen Urine Negative (Negative); Benzodiazepines Screen Urine Negative (Negative); Cocaine Screen Urine Negative (Negative); Opiate Screen Urine Negative (Negative); PCP Screen Urine Negative (Negative); THC Screen Urine Positive (Negative)
[2020-08-11 14:00] VITALS: BP 94/52; PULSE 61; RESP 18; TEMP 36.9; O2SAT 98
--- NOTE | 2020-08-11 16:29 | P.HP_ITS ---
Providers/Chief Complaint Admitting Physician: Mick Mackey MD Chief Complaint: discharge,burning with urination HPI NPU History of Present Illness Lester Enriquez is a 30 year old male who presented to the emergency department with the following report: Chief Complaint: Psychiatric Symptoms Stated Complaint: SI/discharge Time Seen by Provider: 08/10/20 19:45 Source: patient Mode of arrival: ambulatory Limitations: no limitations History of Present Illness: HPI Narrative: 30-year-old male patient presents to the emergency department requesting help due to depression symptoms, suicidal ideations and thoughts. 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 He reports living in a hotel, currently homeless, does not have a good support system. He reports is tired of living the life of drug abuse and misery. He is tearful upon exam. He has no previous suicidal attempts. He does have history of inpatient psychiatric admission here at [facility]. Was evaluated by Dr. Mackey. He reports has not followed up with outpatient psychiatric services for treatment of ADHD and bipolar disorder. He was taken from his mother at age 7. Has indulged in drug abuse since age 15. He reports his life has no direction and does not know what to do to try to get things straightened out. He is willing to come into the psychiatric facility today for help. He is also complaining of pain with urination, penile discharge. 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 complaint: suicidal ideation and feels depressed Onset (ago): week(s) (1-2) Duration: constant and getting worse History of same: Yes Relieving factors: medication and therapy Exacerbating factors: drug use Context: recent drug abuse and not taking psychiatric medications Associated psychiatric symptoms: depression and suicidal ideation Associated symptoms: Reports depression and suicidal ideation; Deny auditory hallucinations, visual hallucinations or delusions Treatments prior to arrival: other (Voluntary) If self harm: admits thoughts of self harm. Is admitted to the neuropsychiatric unit for definitive treatment of those issues. Lester presents today appearing quite thought disordered. He was mostly unable to answer historical questions without paranoia or guardedness. He reports that he has been actively engaged in addictive behavior, homeless and doing dangerous and promiscuous things that are making him further risk. He is very focused on the fact that he has an STD and is fearful will not be treated. We reviewed the past note an excerpt is included below as he denies significant changes and was not really wanting to have an extended conversation. We discussed the risk benefits and alternatives of starting or restarting it acutely on his last year and he understood and was not open to starting medications at this time but was open to evaluation and treatment of his STD. Per his 02/16/[place] [facility] [place]: History of Present Illness Lester Enriquez is a 29 year old male who presents today reporting that he started getting into drugs about three years ago which got him in half-way. He had never tried methamphetamine before. He reports he had a relationship two years ago that really messed him up. He reports he has always been different. Unfortunately, he started messing around with cigarettes, alcohol, marijuana in his early teens and then started doing it fairly regularly at age 15 or 16, but he never done anything other than alcohol and occasionally marijuana, but then reports that he started messing around with methamphetamines and it really, really messed him up. He reports that he has been to rehab four or five times. He never had a DUI. He reports he had some trauma in his youth that he did not really want to go into, but reports it created some real problems for him. He was able to share some of those things, but it was hit or miss because he was fairly disorganized and intermittently made sense, and then other times he made statements that made absolutely no sense, so we tried to do the best we could with the information he provided. He has not been in this system before from a standpoint of his mental health treatment since 2013 when he had his only other psychiatric admission. We reviewed that document and included an excerpt below for historical assistance. It did reveal in that document that his mother when he was about 10 years old. This might be the trauma that he speaks of and he was also adopted. He denies any suicide attempts. PSYCHIATRIC HISTORY: As above. SUBSTANCE ABUSE HISTORY: As above. FAMILY HISTORY: He endorses mental health and addiction issues on both sides of the family. DEVELOPMENTAL HISTORY: He denies any issues with his mother?s or delivery of him. He met all developmental milestones on time. He denies learning support, emotional support, or special education classes. He did have speech therapy at one point. PSYCHOSOCIAL HISTORY: He reports that he is the only product of his biological parents, and that he did have two half-siblings through his mom. He does not believe that he had any siblings through his father. He endorses his childhood was tough at times, but he denies emotional, physical, or sexual abuse. He reports there was CYS involvement at some junctures. He endorses that he went to the twelfth grade, however he ended up going to half-way and was not able to finish high school. He endorses he is a heterosexual. His longest relationship was six months. He denies ever being , ever having children, ever being in the or having any bahai belief system. He reports that his longest job was about six months. He reports that right now he really does not have a place to go, talked strangely about giving up a house that he had; I am not sure exactly what that means. He reports he has a brother in [place] that he might go stay with, and he reported someone else that he might be able to stay with after he finishes his treatment. LEGAL HISTORY: He reports he has been in half-way before a few times. His longest time at once was two years. MEDICAL HISTORY: Denied. Per 2014 [facility] [place]: History of Present Illness Date of Service: Feb 02, 2014 Chief Complaint: Suicide attempt by overdose. HPI: The patient was admitted from the emergency room. He was brought to the emergency room from half-way, after he overdosed on several narcotic pain pills. States he managed to get into half-way with some pain pills. States he was arrested yesterday for robbery. States he has been doing fine prior to being arrested. He had been doing lots of drugs including, but not limited to, pain pills, cannabis, amphetamines. He states he was not suicidal prior to being arrested. He denies sustained depressed mood. States he was not on any psychotropic medications in the past and has not seen a doctor in years because he had no symptoms either mental or physical. He denies hearing voices and seeing things and a detailed history is inconsistent with manic/hypomanic episodes. He is not observed to respond to internal stimuli during this clinic encounter. Speech and behavior are organized. States he would like to stay in the hospital, but cannot explain why he needs inpatient psychiatric treatment. He does not look depressed or disorganized, as mentioned above. Review of Psychiatric Systems: Negative, except as above. Allergies: Coded Allergies: No Known Allergies (Unverified , 12/04/07) Active Meds: Current Hospital Medications: Medications (Trade) Dose Ordered Sig/Bin Route PRN Reason Start Time Stop Time Status Last Admin Dose Admin Lorazepam (Ativan Tab) 0.5 mg Q4H PRN PO FOR MILD ANXIETY 02/02/14 03:45 Lorazepam (Ativan Tab) 1 mg Q4H PRN PO FOR MODERATE ANXIETY 02/02/14 03:45 Lorazepam (Ativan Tab) 2 mg Q4H PRN PO FOR SEVERE ANXIETY 02/02/14 03:45 Lorazepam (Ativan Inj) 2 mg Q4H PRN IM For Severe Aggression 02/02/14 03:45 Haloperidol Lactate (Haldol Inj) 5 mg Q4H PRN IM For Severe Aggression 02/02/14 03:45 Diphenhydramine HCl (Benadryl Inj) 50 mg ONCE PRN IV Severe Extrapyramidal Symptoms 02/02/14 03:45 Benztropine Mesylate (Cogentin Tab) 1 mg BID PRN PO Mild Extrapyramidal symptoms 02/02/14 03:45 Benztropine Mesylate (Cogentin Inj) 1 mg ONCE PRN IM Severe Extrapyramidal Symptoms 02/02/14 03:45 Acetaminophen (Tylenol Tab) 650 mg Q4H PRN PO FOR PAIN 02/02/14 03:45 Trazodone HCl (Trazodone) 50 mg HS PRN PO FOR SLEEP 02/02/14 03:45 Nicotine (Nicoderm Patch) 21 mg DAILY PRN TD 02/02/14 03:45 Nicotine Polacrilex (Nicotine Gum) 2 mg Q2H PRN PO FOR WITHDRAWAL 02/02/14 03:45 Haloperidol (Haldol Tab) 5 mg Q4H PRN PO FOR AGITATION 02/02/14 03:45 Lorazepam (Ativan Tab) 2 mg Q4H PRN PO FOR AGITATION 02/02/14 03:45 Home Meds: None. Past Medical History Past Medical/Social History: PAST PSYCHIATRIC HISTORY: Denies previous suicide attempts. No previous contact with a psychiatrist. SUBSTANCE ABUSE HISTORY: Smokes Cigarettes: Yes. Endorses illicit drug use: Yes, as described above. His urine drug screen was positive for cannabis and amphetamines. SOCIAL HISTORY: Employed: No. Marital status: Never . Has no children. States he was adopted. His biological mother when he was 10 years old. DEVELOPMENTAL HISTORY: History of Physical, Emotional and Sexual abuse: None reported. LEGAL HISTORY: Currently incarcerated for a robbery. Was previously in long term for 6 years for burglary and car tampering. FAMILY PSYCHIATRIC HISTORY: None reported. PAST MEDICAL HISTORY: None. Meds NPU Home Medications Medication Instructions Recorded Confirmed Last Taken Type No Known Home Medications 08/11/20 08/11/20 Unknown History Allergies Allergy/AdvReac Type Severity Reaction Status Date / Time No Known Allergies Allergy Verified 02/18/20 16:17 PFSH NPU PFSH: Medical History (Updated 08/13/20 @ 05:52 by Mick Mackey MD) ADHD Bipolar affect, depressed Surgical History (Updated 08/12/20 @ 05:20 by Betty Hernandez MD) No history of previous surgery Family History (Updated 08/12/20 @ 05:13 by Betty Hernandez MD) Other Psychiatric illness Social History (Updated 08/12/20 @ 05:15 by Betty Hernandez MD) Smoking and tobacco status: current every day smoker Alcohol intake: current Substance/Drug Use: current Mental Status Exam MSE Comments: This is a tall slender white male in hospital scrubs with adequate grooming and limited eye contact. No abnormal movements except for psychomotor agitation mild. Semicooperative with exam in mild to moderate distress. Speech was increased rate but decreased volume. Mood described as okay, affect quite guarded. Thought process organized in general but at times disorganized by his paranoia. Thought content: Patient denied suicidal or homicidal ideation, there were no delusions reported but clear paranoia and persecutory thinking exists, he denied auditory or visual hallucinations but at times appeared to be attending to internal stimuli. Attention and concentration was impaired at times and memory was unreliable but none were formally tested. He is alert and oriented x3. Insight and judgment are impaired, impulse control is impaired. Vitals/I&O/Wt Last Vital Signs Temp 98.4 F 08/11/20 14:00 Pulse 61 08/11/20 14:00 Resp 18 08/11/20 14:00 BP 94/52 08/11/20 14:00 Pulse Ox 98 08/11/20 14:00 Weight last 48 hrs Weight 77.111 kg Data NPU : 08/10/20 20:05 08/10/20 20:05 A&P Assessment and plan (1) Balanitis: Status: Acute (2) UTI (urinary tract infection): Status: Acute Qualifiers: Urinary tract infection type: urethritis Qualified Code(s): N34.2 - Other urethritis (3) Depression: Status: Acute Qualifiers: Active/Remission status: currently active Depression Type: major depressive disorder Major depression episode severity: moderate Major depression recurrence: single episode Qualified Code(s): F32.1 - Major depressive disorder, single episode, moderate (4) Methamphetamine dependence: Status: Acute (5) ADHD: Status: Acute (6) Bipolar affect, depressed: Status: Acute Qualifiers: Current episode severity: moderate Qualified Code(s): F31.32 - Bipolar disorder, current episode depressed, moderate (7) Psychosis: Status: Acute Additional A&P Information This is a 30-year-old white male with a long history of addiction and psychosis who presents with active addiction, off of his medication with thought disorder. 1. Continue current medication. We will continue to offer to restart his previous medications which appeared to be effective. 2. Continue every 15 minute checks for safety. 3. Encourage individual, group and milieu therapy. 4. Encourage sober living treatment after discharge at the highest level of care to which he is willing to commit. Involuntary Hold Information 96 Hour Hold: 96 Hour Involuntary Admission: No Attestations NPU Medical Necessity Statement*: Inpatient hospitalization is medically necessary and the clinically appropriate intervention at this time. We will monitor medications and make changes as indicated. Patient will be in the hospital for overnight. Likely length of stay 4-6 days. 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
[2020-08-11 21:49] VITALS: BP 106/59; PULSE 64; RESP 18; TEMP 36.8; O2SAT 97
--- NOTE | 2020-08-11 22:25 | PC.NURSE ---
Consult requested for Penile discomfort Pt is experiencing pain, swelling, drainage, irritation, and discomfort that begins at the tip of his penis, the entire length of shaft, and complains of scrotal pain. Pt reports decreased urination and some retention. Pt bladder is mildly distended at this time. requested a consult at 2223 pm 08/11/20. Spoke with Dr. Hernandez over the phone, she asked if pt could still urinate, nurse responded yes. Physician stated, I will come see the patient as soon as I am able. I am dealing with emergent cases at the moment. It may be late.
--- NOTE | 2020-08-11 23:28 | PC.NURSE ---
PM assessment Pt is resting in his room at time of assessment. Pt denies AH/VH, Denies SI/HI, rated pain in his lower abdomen and genitals. Pt reports yellowish discharge from penis, swelling, and redness. Pt reports scrotal pain. Pt states, I think this is an STD. I had sex with 3 females and now I have this infection. Pt received Flagyl 2000mg PO, Zithromax 1000 mg PO, Recephin 1000mg PO in the ED prior to admission to NPU. Pt is still symptomatic of infection. Pt reports burning with urination at this time. Rated his pain at a 9 on 1-10 pain scale. Med Nurse notified. Hospitalist consult requested. Will continue to monitor pt for increasing s/s of infection and pain control.
[2020-08-12] MEDS: cefTRIAXone 1,000 MG, lidocaine 1% 2.1 ML in SYRINGE 1 EACH 1 MG IM (02:51)
--- NOTE | 2020-08-12 05:06 | P.CONIM_ITS ---
Providers/Reason For Consult Consulting Physican/Specialty*: Frase/Hospitalist Reason for Consult*: Penile edema, discharge and trouble urinating Requesting Physcian: Dr Mackey Attending Physician: Mick Mackey MD History of Present Illness History of Present Illness eLster Enriquez is a 30 year old male admitted to the neuropsych unit on August 10. He had an abnormal urinalysis at that time and was given a dose of Rocephin IM in the evening on the same date. He has not been continued on any other antibiotics. Hospitalist were consulted due to complaint of penile edema, penile drainage, pain in the suprapubic area. Patient does admit to being sexually active, unprotected sex. Difficulty urinating started a couple of days ago and is worsened. He got scared today because of the swelling around the distal portion of his penis below the glans. Denies any testicular pain or swelling. Drainage has been yellow in color, occasionally greenish. No sores. No fever. Review of Systems Const: Reports: fatigue; Denies: fever(s) or chills Eyes: Denies: change in vision ENMT: Denies: throat pain Card: Denies: chest pain Resp: Denies: dyspnea GI: Denies: abdominal pain : Reports: difficulty urinating, urinary frequency, urinary urgency, difficulty starting urination, penile discharge and other (Swelling around the glans); Denies: flank pain, genital lesions, testicular pain or testicular mass Musc: Denies: joint redness Skin/Breast: Denies: pruritus or erythema Neuro: Reports: difficulty walking Psych: Reports: anxiety and depression Vj/Lymph: Reports: tender lymph nodes Meds/Allergies Home Medications and Allergies Home Medications Medication Instructions Recorded Confirmed Last Taken Type No Known Home Medications 08/11/20 08/11/20 Unknown History Allergies Allergy/AdvReac Type Severity Reaction Status Date / Time No Known Allergies Allergy Verified 02/18/20 16:17 Current Medications Current Medications Generic Name Dose Route Start Last Admin Trade Name Freq PRN Reason Stop Dose Admin Acetaminophen 650 mg 08/10/20 23:00 08/11/20 20:15 Acetaminophen 325 Mg Tablet PO 650 mg Q4H PRN Administration MILD PAIN Hydroxyzine Pamoate 50 mg 08/10/20 23:00 08/10/20 23:11 Hydroxyzine 25 Mg Capsule PO 50 mg Q6H PRN Administration ANXIETY PFSH Acute PFSH: Medical History (Updated 08/12/20 @ 05:28 by Betty Hernandez MD) ADHD Bipolar affect, depressed Surgical History (Updated 08/12/20 @ 05:20 by Betty Hernandez MD) No history of previous surgery Family History (Updated 08/12/20 @ 05:13 by Betty Hernandez MD) Other Psychiatric illness Social History (Updated 08/12/20 @ 05:15 by Betty Hernandez MD) Smoking and tobacco status: current every day smoker Alcohol intake: current Substance/Drug Use: current Vitals/I&O/Wt Last Vital Signs Temp 98.2 F 08/11/20 21:49 Pulse 64 08/11/20 21:49 Resp 18 08/11/20 21:49 BP 106/59 08/11/20 21:49 Pulse Ox 97 08/11/20 21:49 08/11/20 08/11/20 08/12/20 14:59 22:59 06:59 Intake Total 2.1 / 2.1 Balance 2.1 / 2.1 Weight last 48 hrs Weight 77.111 kg Physical Exam Const: COMMON NORMALS: no acute distress and patient oriented x3 GENERAL APPEARANCE: cooperative NUTRITIONAL APPEARANCE: thin HENMT: COMMON NORMALS: normocephalic HEAD & SCALP: normocephalic MOUTH: lip normal Eye: COMMON NORMALS: EOMs intact bilaterally Resp: COMMON NORMALS: normal respiratory effort and No use of accessory muscles EFFORT & INSPECTION: Yes able to speak in complete sentences Cardio: COMMON NORMALS: regular rate RATE: regular rate GI: COMMON NORMALS: Soft to palpation and non-tender PALPATION: Yes Soft to palpation : MALE GROIN/PERINEUM EXAM: Yes inguinal lymphadenopathy (Bilateral left greater than right, mild tenderness) and Yes other (Patient was examined with nurse at the bedside) PENIS: circumcised, edematous (At base of the glans penis circumferentially, no induration, no crepitus), no pustules, no vesicles and no ulcerations MEATUS: meatal discharge SCROTUM: No Scrotal tenderness present, No erythematous, No ecchymosis and No scrotal swelling TESTES: No Enlarged testicle(s) present, No testicular swelling, No testicular tenderness and No testicular mass Neuro: COMMON NORMALS: patient oriented x3 Skin: GENERAL SKIN EXAM: other (Multiple tattoos) A&P Assessment and plan (1) Balanitis: Status: Acute (2) UTI (urinary tract infection): Status: Acute Qualifiers: Urinary tract infection type: urethritis Qualified Code(s): N34.2 - Other urethritis Additional A&P Information Give additional IM Rocephin Levaquin orally Send GC and chlamydia panel Follow-up pending urine culture from August 10 Discussed with patient to let us know if he has any increased swelling, development of pain or inability to urinate or other concerning symptoms. He expressed understanding. Supportive care otherwise Discussed with nursing staff as well We will follow along to ensure continued improvement Consult Attestations Medical Necessity Statement: As per psychiatry Coding Level of Care Code Acute Settlement Processor for [facility] Diagnoses Balanitis N48.1 UTI (urinary tract infection) N34.2 Urinary tract infection type: urethritis
--- NOTE | 2020-08-12 05:41 | PC.NURSE ---
consult w/Dr Hernandez Hospitalist Dr. Hernandez, physically examined patient in NPU. Pt prescribed antibiotics for infection and instructed him to inform staff if the swelling around the head of his penis is cutting off his ability to urinate. Pt is experiencing burning in the genitals, burning when defecating, penile discharge, and suprapubic pain. Pt provided urine sample to test for STI's. Will consider the needs of patient pending result.
[2020-08-12 06:00] VITALS: BP 114/62; PULSE 52; RESP 16; TEMP 36.4; O2SAT 98
[2020-08-12] MEDS: levoFLOXacin 500 mg Tablet PO (06:49)
[2020-08-12] MEDS: hyDROXYzine 25 mg Capsule 50 MG PO ×2 (08:51→19:48)
--- NOTE | 2020-08-12 08:52 | PC.NURSE ---
PRN VISTARIL 50 MG GIVEN PO PER PT C/O STATED ANXIETY. PT STATED I JUST WANT OUT OF HERE WILL CONT TO MONITOR
[2020-08-12 09:22] LABS: HIV 1 & 2 Antibody Non-Reactive (Non-Reactiv); HIV 1 & 2 Antigen Non-Reactive (Non-Reactiv)
--- NOTE | 2020-08-12 10:31 | PM.PN ---
Subjective Subjective: Interval history: Lester reports he is feeling better. He reports the swelling at the end of his penis is improved and he is having less discharge. Consultation reviewed. Medications: Reviewed: Yes Vitals/I&O/Wt Last Vital Signs Temp 97.6 F 08/12/20 06:00 Pulse 52 L 08/12/20 06:00 Resp 16 08/12/20 06:00 BP 114/62 08/12/20 06:00 Pulse Ox 98 08/12/20 06:00 08/11/20 08/12/20 08/12/20 22:59 06:59 14:59 Intake Total 2.1 / 2.1 Balance 2.1 / 2.1 Weight last 48 hrs Weight 77.111 kg Physical Exam Narrative: EXAM NARRATIVE: General exam no apparent distress Cardiovascular regular rate and rhythm without murmur Lungs clear demonstrates an adult male with no evidence of hernia, with palpable lymph nodes inguinal areas bilaterally but small and nontender. No testicular masses. Head of penis slightly swollen but patient reports improved. No significant discharge currently. Data : 08/10/20 20:05 08/10/20 20:05 Micro: Microbiology 08/10/20 13:50 Urine Culture - Preliminary Urine,Clean Catch A&P Assessment and plan (1) Balanitis: Improving. Currently on Levaquin Pt request HIV, hepaitis, RPR screening as well. This was ordered. I will follow up with patient tomorrow as well. Status: Acute (2) UTI (urinary tract infection): Currently on Levaquin. Urine culture pending. GC and Chlamydia PCR pending. Currently intend 7 days of treatment Note that he has already received an appropriate dose of Rocephin to cover gonorrhea as well as a azithromycin on August 11 that would appropriately cover chlamydia Status: Acute Qualifiers: Urinary tract infection type: urethritis Qualified Code(s): N34.2 - Other urethritis Attestations Medical Necessity Statement*: As per primary Coding Level of Care Code Acute Manufacturers Service Representative for [facility] Diagnoses Balanitis N48.1 UTI (urinary tract infection) N34.2 Urinary tract infection type: urethritis
[2020-08-12 13:09] LABS: Rapid Plasma Reagin Syphilis Nonreactive (Nonreactive)
[2020-08-12 13:22] LABS: Hepatitis A Antibody IgM Non-Reactive (Nonreactive); Hepatitis B Core IgM Non-Reactive (Nonreactive); Hepatitis B Surface Antigen Non-Reactive (Nonreactive); Hepatitis C Virus Antibody Non-Reactive (Nonreactive)
[2020-08-12 13:43] VITALS: BP 108/65; PULSE 63; RESP 18; TEMP 37.1; O2SAT 97
--- NOTE | 2020-08-12 18:43 | P.PN_ITS ---
Subjective NPU Subjective: Interval history: Lester presents today reporting that he is glad that his STD is being treated but at other times he is confused saying he needs to be seen like he does not realize that providers have met with him. I reassured him that we will take care of his infection. Otherwise I again reviewed our records suggesting that he had a good response to Abilify and di scussed the possibility of him restarting it and he agreed that he would restart it in the morning. Mental Status Exam MSE Comments: This is a tall slender white male in hospital scrubs with adequate grooming and limited eye contact. No abnormal movements except for psychomotor agitation mild. More cooperative with exam in mild distress. Speech was slightly decreased rate and volume. Mood described as my mind is not right, affect a little less guarded. Thought process organized in general but at times disorganized by his paranoia. Thought content: Patient denied suicidal or homicidal ideation, there were no delusions reported but clear paranoia and persecutory thinking exists, he denied auditory or visual hallucinations but at times appeared to be attending to internal stimuli. Attention and concentration was impaired at times and memory was unreliable but none were formally tested. He is alert and oriented x3. Insight and judgment are impaired, impulse control is impaired. Vitals/I&O/Wt Last Vital Signs Temp 98.8 F 08/12/20 19:42 Pulse 60 08/12/20 19:42 Resp 17 08/12/20 19:42 BP 97/64 08/12/20 19:42 Pulse Ox 96 08/12/20 19:42 Data NPU : 08/10/20 20:05 08/10/20 20:05 Micro: Microbiology 08/10/20 13:50 Urine Culture - Preliminary Urine,Clean Catch Microbiology 08/10/20 13:50 Urine,Clean Catch Urine Culture - Preliminary A&P Additional A&P Information (1) Balanitis: (2) UTI (urinary tract infection): (3) Depression: (4) Methamphetamine dependence: (5) ADHD: (6) Bipolar affect, depressed: (7) Psychosis: Additional A&P Information This is a 30-year-old white male with a long history of addiction and psychosis who presents with active addiction, off of his medication with thought disorder. 1. Continue current medication. Restart Abilify 10 mg p.o. every morning. 2. Continue every 15 minute checks for safety. 3. Encourage individual, group and milieu therapy. 4. Encourage sober living treatment after discharge at the highest level of care to which he is willing to commit. Involuntary Hold Information 96 Hour Hold: 96 Hour Involuntary Admission: No Attestations NPU Medical Necessity Statement*: Inpatient hospitalization is medically necessary and the clinically appropriate intervention at this time. We will monitor medications and make changes as indicated. Likely length of stay 3-5 days. Coding Level of Care Code Acute [employer] for Loy Billingsley
[2020-08-12 19:42] VITALS: BP 97/64; PULSE 60; RESP 17; TEMP 37.1; O2SAT 96
[2020-08-12] MEDS: trazodone 50 mg Tablet PO (19:48)
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
[2020-08-13 06:00] VITALS: BP 108/68; PULSE 60; RESP 18; TEMP 36.8; O2SAT 98
[2020-08-13] MEDS: levoFLOXacin 500 mg Tablet PO (06:01)
[2020-08-13] MEDS: ARIPiprazole 10 mg Tablet PO (07:18)
--- NOTE | 2020-08-13 10:29 | PM.PN ---
Subjective Subjective: Interval history: Lester reports he is not having any issues urinating and head of penis is less swollen. Medications: Reviewed: Yes Vitals/I&O/Wt Last Vital Signs Temp 98.2 F 08/13/20 06:00 Pulse 60 08/13/20 06:00 Resp 18 08/13/20 06:00 BP 108/68 08/13/20 06:00 Pulse Ox 98 08/13/20 06:00 Physical Exam Narrative: EXAM NARRATIVE: On exam no apparent distress Head of penis is less swollen on exam Data : 08/10/20 20:05 08/10/20 20:05 Micro: Microbiology 08/10/20 13:50 Urine Culture - Final Urine,Clean Catch A&P Assessment and plan (1) Balanitis: Improving. Currently on Levaquin HIV, hepatitis, RPR results all negative. I discussed and counseled the patient regarding prevention of these diseases as well as his test results Status: Acute (2) UTI (urinary tract infection): Currently on Levaquin. Urine culture pending. GC and Chlamydia PCR pending. Currently intend 7 days of treatment Note that he has already received an appropriate dose of Rocephin to cover gonorrhea as well as a azithromycin on August 11 that would appropriately cover chlamydia Status: Acute Qualifiers: Urinary tract infection type: urethritis Qualified Code(s): N34.2 - Other urethritis Additional A&P Information Thank you for this consultation. I will sign off at this point. Call with any questions. Attestations Medical Necessity Statement*: As per primary Coding Level of Care Code Acute Configuration Specialist for [facility] Diagnoses Balanitis N48.1 UTI (urinary tract infection) N34.2 Urinary tract infection type: urethritis
[2020-08-13 12:27] VITALS: BP 111/74; PULSE 96; RESP 18; TEMP 36.3; O2SAT 97
[2020-08-13] MEDS: OLANZapine 5 mg ODT PO (13:11)
[2020-08-13] MEDS: acetaminophen 325 mg Tablet 650 MG PO (13:55)
--- NOTE | 2020-08-13 14:11 | PM.NPN ---
Subjective NPU Subjective: Interval history: Lester presented today reporting that he has been feeling odd. He gave a somewhat convoluted story which included him both feeling this way before and saying that things were fine until he took the Abilify this morning. I try to give him some reassurance which at some level was concerning to him. I asked the staff to get repeat vitals on him as he was reporting palpitations/heart racing. He reassured him however he continued to feel strange and felt the medication was driving it that we would consider a change but we discussed the fact that his infection and or withdrawing from methamphetamine could lead him to have some kind of feelings as well. Mental Status Exam MSE Comments: This is a tall slender white male in hospital scrubs with adequate grooming and improving eye contact. No abnormal movements except for mild psychomotor agitation. More cooperative with exam in mild distress. Speech was slightly increased rate and decreased volume. Mood described as I feel weird, affect a little less guarded. Thought process mostly organized. Thought content: Patient denied suicidal or homicidal ideation, there were no delusions reported but clear paranoia, somatic and persecutory thinking exists, he denied auditory or visual hallucinations but at times appeared to be attending to internal stimuli. Attention and concentration was impaired at times and memory was unreliable but none were formally tested. He is alert and oriented x3. Insight and judgment are impaired, impulse control is impaired. Vitals/I&O/Wt Last Vital Signs Temp 97.8 F 08/13/20 19:44 Pulse 60 08/13/20 19:44 Resp 18 08/13/20 19:44 BP 111/65 08/13/20 19:44 Pulse Ox 95 08/13/20 19:44 08/13/20 08/13/20 08/13/20 06:59 14:59 22:59 Intake Total 480 / 480 240 / 720 Balance 480 / 480 240 / 720 Data NPU : 08/10/20 20:05 08/10/20 20:05 Micro: Microbiology 08/10/20 13:50 Urine Culture - Final Urine,Clean Catch Microbiology 08/10/20 13:50 Urine,Clean Catch Urine Culture - Final A&P Additional A&P Information Additional A&P Information (1) Balanitis: (2) UTI (urinary tract infection): (3) Depression: (4) Methamphetamine dependence: (5) ADHD: (6) Bipolar affect, depressed: (7) Psychosis: Additional A&P Information This is a 30-year-old white male with a long history of addiction and psychosis who presents with active addiction, off of his medication with thought disorder. 1. Continue current medication. Restart Abilify 10 mg p.o. every morning. 2. Continue every 15 minute checks for safety. 3. Encourage individual, group and milieu therapy. 4. Encourage sober living treatment after discharge at the highest level of care to which he is willing to commit. 5. Appreciate hospitalist consult regarding infection and will continue antibiotics for 7-day course as directed. Involuntary Hold Information 96 Hour Hold: 96 Hour Involuntary Admission: No Attestations NPU Medical Necessity Statement*: Inpatient hospitalization is medically necessary and the clinically appropriate intervention at this time. We will monitor medications and make changes as indicated. Likely length of stay 2-4 days. Coding Level of Care Code Acute [employer] for Loy Billingsley
[2020-08-13 14:27] VITALS: BP 112/75; PULSE 56; RESP 16; TEMP 36.4; O2SAT 97
[2020-08-13 19:44] VITALS: BP 111/65; PULSE 60; RESP 18; TEMP 36.6; O2SAT 95
--- NOTE | 2020-08-14 01:14 | PC.NURSE ---
PM Assessment V/S are normal. Heart/lung sounds normal. Decrease swelling and irritation of the penis is noted. Pt reports decrease in pain while urinating. Pt rates pain a 0 on 1-10 pain scale at this time. Denies SI/HI, Denies AH/VH, Pt came out of room for snack, and returned to bed. Offered shower. pt declined. Will continue to monitor pt behavior and infection for any increasing s/s.
[2020-08-14] MEDS: levoFLOXacin 500 mg Tablet PO (05:58)
[2020-08-14 06:00] VITALS: BP 114/71; PULSE 60; RESP 18; TEMP 36.8; O2SAT 97
[2020-08-14] MEDS: ARIPiprazole 10 mg Tablet PO (07:32)
--- NOTE | 2020-08-14 09:39 | NUR.SHIFT ---
PATIENT WANTING TO LEAVE. ENCOURAGED PATIENT TO STAY, MAKE SURE THE ANTIBIOTIC FOR HIS UTI IS EFFECTIVE. ENCOURAGED PATIENT TO FILL OUT PAPERWORK THE [facility] TRIED TO GET HIM TO FILL OUT YESTERDAY FOR REHAB. DISCUSSED POTENTIAL CONCERNS WITH RELAPSE. PATIENT WAS PLEASANT UPON CONVERSATION AND AGREES TO FILL OUT PAPERWORK. RELAYED THIS TO [facility].
--- NOTE | 2020-08-14 11:50 | PM.NPN ---
Subjective NPU Subjective: Interval history: Lester presents today being much more cooperative with exam. He reports that he feels like the medication is working okay and he denied any other complaints that he had yesterday. He reports a clear sense that he really needs to do some kind of treatment for the situation to get better. He is reporting he will continue with the Abilify oral medication. Otherwise he is working with the treatment team on paperwork to obtain placement in a sober living facility. He is eating okay and sleeping a little better. Mental Status Exam MSE Comments: This is a tall slender white male in hospital scrubs with adequate grooming and improving eye contact. No abnormal movements except for mild psychomotor retardation. More cooperative with exam in no acute distress. Speech was decreased rate and volume. Mood described as a little better, affect less guarded. Thought process mostly organized. Thought content: Patient denied suicidal or homicidal ideation, there were no delusions reported but clear paranoia that is resolving, and less somatic and persecutory thinking exists, he denied auditory or visual hallucinations . Attention and concentration were improving and memory was more reliable but none were formally tested. He is alert and oriented x3. Insight and judgment are impaired, but improving, impulse control is impaired, but improving. Vitals/I&O/Wt Last Vital Signs Temp 98.2 F 08/14/20 06:00 Pulse 60 08/14/20 06:00 Resp 18 08/14/20 06:00 BP 114/71 08/14/20 06:00 Pulse Ox 97 08/14/20 06:00 08/13/20 08/14/20 08/14/20 22:59 06:59 14:59 Intake Total 240 / 720 Balance 240 / 720 Data NPU : 08/10/20 20:05 08/10/20 20:05 Micro: Microbiology 08/10/20 13:50 Urine Culture - Final Urine,Clean Catch Microbiology 08/10/20 13:50 Urine,Clean Catch Urine Culture - Final A&P Additional A&P Information (1) Balanitis: (2) UTI (urinary tract infection): (3) Depression: (4) Methamphetamine dependence: (5) ADHD: (6) Bipolar affect, depressed: (7) Psychosis: Additional A&P Information This is a 30-year-old white male with a long history of addiction and psychosis who presents with active addiction, off of his medication with thought disorder. 1. Continue current medication. 2. Continue every 15 minute checks for safety. 3. Encourage individual, group and milieu therapy. 4. Encourage sober living treatment after discharge at the highest level of care to which he is willing to commit. 5. Appreciate hospitalist consult regarding infection and will continue antibiotics for 7-day course as directed. Involuntary Hold Information 96 Hour Hold: 96 Hour Involuntary Admission: No Attestations NPU Medical Necessity Statement*: Inpatient hospitalization is medically necessary and the clinically appropriate intervention at this time. We will monitor medications and make changes as indicated. Likely length of stay 2-4 days. 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
[2020-08-14 14:00] VITALS: BP 111/69; PULSE 85; RESP 20; TEMP 36.1; O2SAT 95
[2020-08-14 20:05] VITALS: BP 120/69; PULSE 61; RESP 18; TEMP 36.9; O2SAT 96
--- NOTE | 2020-08-15 04:49 | PC.NURSE ---
Patient woke up around 0440 in the morning. Staff went ahead a got vitals on patient. Patient stated to staff that they woke up having a bad dream and thinking they got hit on the head. Patient stated that they have been having these allen dreams the past few nights and believes it is because of the medication he was started on. Staff informed patient to let the Doctor know about dreams.
[2020-08-15 06:00] VITALS: BP 120/58; PULSE 74; RESP 18; TEMP 36.6
[2020-08-15] MEDS: levoFLOXacin 500 mg Tablet PO (06:25)
[2020-08-15 13:23] VITALS: BP 116/74; PULSE 85; RESP 18; TEMP 36.2; O2SAT 97
[2020-08-15] MEDS: nicotine 2 mg Gum BUCCAL (14:53)
--- NOTE | 2020-08-15 16:56 | P.PN_ITS ---
Subjective NPU Subjective: Interval history: Continues report improvement of mood symptoms, denies any interval depressive symptoms, denies any suicidal ideation Denies any interval psychotic symptoms Reports that he continues to have intermittent cravings for substance use Reports improving appetite and sleep Reports being compliant with his medication, reports having vivid, bad dreams which she attributes to one of his medications No reports of any interval behavioral disturbances Mental Status Exam MSE Comments: Appears stated age, appropriately groomed and wearing hospital scrubs, visible tattoos on face and arms, calm, cooperative, interactive, polite, good eye contact Psychomotor activity is neither increased nor decreased, no agitation Speech is normal rate and volume, spontaneous, clear articulation, not pressured I feel okay, full range of affect, not labile Alert and oriented to person, place, time, situation Memory and concentration appear to be intact per interview Thought process, linear, no flight of ideas, no looseness of associations Thought content, no delusions, does not appear to be attending to any internal stimuli, no suicidal or homicidal ideation Insight and judgment appear to be intact Vitals/I&O/Wt Last Vital Signs Temp 97.2 F L 08/15/20 13:23 Pulse 85 08/15/20 13:23 Resp 18 08/15/20 13:23 BP 116/74 08/15/20 13:23 Pulse Ox 97 08/15/20 13:23 Data NPU : 08/10/20 20:05 08/10/20 20:05 A&P Assessment and plan (1) Psychosis: Status: Acute (2) Balanitis: Status: Acute (3) UTI (urinary tract infection): Status: Acute Qualifiers: Urinary tract infection type: urethritis Qualified Code(s): N34.2 - Other urethritis (4) Depression: Status: Acute Qualifiers: Active/Remission status: currently active Depression Type: major depressive disorder Major depression episode severity: moderate Major depression recurrence: single episode Qualified Code(s): F32.1 - Major depressive disorder, single episode, moderate (5) Methamphetamine dependence: Status: Acute (6) ADHD: Status: Acute (7) Bipolar affect, depressed: Status: Acute Qualifiers: Current episode severity: moderate Qualified Code(s): F31.32 - Bipolar disorder, current episode depressed, moderate Additional A&P Information Continues report improvement in mood, denies any interval psychotic symptoms, awaiting coordination for follow on substance treatment DECREASE to Abilify 5 mg daily Continue monitor Involuntary Hold Information 2 96 Hour Hold: 96 Hour Involuntary Admission: No Attestations NPU Medical Necessity Statement*: Continues require psychiatric hospitalization for medication stabilization, coordination for post discharge substance treatment and counseling as well as medication management Coding 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
[2020-08-15 20:06] VITALS: BP 96/60; PULSE 75; RESP 18; TEMP 36.9; O2SAT 96
[2020-08-15] MEDS: trazodone 50 mg Tablet PO (20:46)
[2020-08-16 06:00] VITALS: BP 96/62; PULSE 84; RESP 16; TEMP 37.1; O2SAT 96
[2020-08-16] MEDS: levoFLOXacin 500 mg Tablet PO (06:25)
[2020-08-16 13:54] VITALS: BP 112/64; PULSE 73; RESP 18; TEMP 36.8; O2SAT 97
[2020-08-16] MEDS: nicotine 2 mg Gum BUCCAL (15:13)
--- NOTE | 2020-08-16 16:25 | PM.NPN ---
Subjective NPU Subjective: Interval history: Denies any interval mood symptoms, denies any interval psychotic symptoms, denies any interval depressive symptoms, denies any suicidal ideation Reports improving appetite and sleep Reports being compliant with his medication, reports grogginess with Abilify and states that he has been refusing it the past couple days Mental Status Exam MSE Comments: Sitting up on his bed, appropriately groomed and dressed, calm, cooperative, interactive, polite, good eye contact Psychomotor activity is neither increased nor decreased, no agitation Speech is normal rate and volume, spontaneous, clear articulation, not pressured I feel pretty good, full range of affect, not labile Alert and oriented to person, place, time, situation Memory and concentration appear to be intact per interview Thought process, linear, no flight of ideas, no looseness of associations Thought content, no delusions, does not appear to be attending to any internal stimuli, no suicidal or homicidal ideation Insight and judgment appear to be intact Vitals/I&O/Wt Last Vital Signs Temp 98.2 F 08/16/20 13:54 Pulse 73 08/16/20 13:54 Resp 18 08/16/20 13:54 BP 112/64 08/16/20 13:54 Pulse Ox 97 08/16/20 13:54 Data NPU : 08/10/20 20:05 08/10/20 20:05 A&P Assessment and plan (1) Psychosis: Status: Acute (2) Bipolar affect, depressed: Status: Acute Qualifiers: Current episode severity: moderate Qualified Code(s): F31.32 - Bipolar disorder, current episode depressed, moderate (3) UTI (urinary tract infection): Status: Acute Qualifiers: Urinary tract infection type: urethritis Qualified Code(s): N34.2 - Other urethritis (4) Balanitis: Status: Acute (5) Methamphetamine dependence: Status: Acute Additional A&P Information Reports improving mood, states that Abilify causes grogginess, has not taken dose the last couple days, continues to take antibiotic for UTI, balanitis CONTINUE current medication, continue to monitor Continue encourage patient participate in unit milieu Involuntary Hold Information 96 Hour Hold: 96 Hour Involuntary Admission: No Attestations NPU Medical Necessity Statement*: Continues require psychiatric hospitalization to coordinate safe discharge including post discharge care Coding Level of Care 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
[2020-08-16 19:57] VITALS: BP 112/83; PULSE 78; RESP 18; TEMP 36.8; O2SAT 97
[2020-08-17 06:00] VITALS: BP 115/74; PULSE 86; RESP 15; TEMP 37; O2SAT 98
[2020-08-17] MEDS: levoFLOXacin 500 mg Tablet PO (06:21)
--- NOTE | 2020-08-17 08:55 | PC.NURSE ---
MED REFUSAL AFTER SEVERAL ATTEMPTS TO GET PATIENT TO TAKE HIS MORNING MEDS, PT REFUSED. HE STATES HE DOES NOT NEED THEM. WILL CONTINUE TO MONITOR PATIENT.
--- NOTE | 2020-08-17 13:05 | P.PN_ITS ---
Subjective NPU Subjective: Interval history: Continues to deny any interval mood symptoms, denies any depressed symptoms, denies any suicidal ideation Denies any interval psychotic symptoms. Continues to report that he is refusing Abilify because he does not believe that he needs it Reports that his appetite is been good Reports that he has been sleeping well, feels rested No reports of any interval behavioral disturbances Mental Status Exam MSE Comments: Appears stated age, appropriately groomed and dressed, calm, cooperative, interactive, good eye contact Psychomotor activity is neither increased nor decreased, no agitation Speech is normal rate and volume, spontaneous, clear articulation, not pressured I feel good, full range, smiles appropriately, not labile Alert and oriented to person, place, time, situation Memory and concentration appear to be intact per interview Thought process, linear Thought content, no delusions, no hallucinations, no suicidal or homicidal ideation Insight and judgment appear to be fair to intact Vitals/I&O/Wt Last Vital Signs Temp 98.6 F 08/17/20 06:00 Pulse 86 08/17/20 06:00 Resp 15 08/17/20 06:00 BP 115/74 08/17/20 06:00 Pulse Ox 98 08/17/20 06:00 Weight last 48 hrs Weight 77.111 kg Data NPU : 08/10/20 20:05 08/10/20 20:05 A&P Assessment and plan (1) Psychosis: Status: Acute Qualifiers: Psychosis type: unspecified psychosis type Qualified Code(s): F29 - Unspecified psychosis not due to a substance or known physiological condition (2) Depression: Status: Acute Qualifiers: Active/Remission status: currently active Depression Type: major depressive disorder Major depression episode severity: moderate Major depression recurrence: single episode Qualified Code(s): F32.1 - Major depressive disorder, single episode, moderate (3) Balanitis: Status: Acute (4) UTI (urinary tract infection): Status: Acute Qualifiers: Urinary tract infection type: urethritis Qualified Code(s): N34.2 - Other urethritis (5) Methamphetamine dependence: Status: Acute Additional A&P Information No interval complaints, continues to refuse Abilify, continues to be compliant with antibiotic CONTINUE current medication, continue to monitor Involuntary Hold Information 96 Hour Hold: 96 Hour Involuntary Admission: No Attestations NPU Medical Necessity Statement*: Continues require psychiatric hospitalization for medication stabilization, observation, coordination for safe discharge including post discharge follow-up 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
[2020-08-17 13:18] VITALS: BP 123/79; PULSE 78; RESP 18; TEMP 37
--- NOTE | 2020-08-17 19:48 | PC.NURSE ---
LAYING IN BED, PLEASANT, TALKATIVE. SAYS IS MUCH BETTER TODAY. NO DRAINAGE FROM PENIS, DENIES ANY PAIN. SAYS HOPING TO LEAVE TOMORROW.
[2020-08-17 19:57] VITALS: BP 111/69; PULSE 71; RESP 18; TEMP 36.8; O2SAT 93
[2020-08-17] MEDS: hyDROXYzine 25 mg Capsule 50 MG PO (19:58)
[2020-08-18 06:00] VITALS: BP 126/72; PULSE 82; RESP 18; TEMP 36.9; O2SAT 97
[2020-08-18] MEDS: levoFLOXacin 500 mg Tablet PO (06:21)
[2020-08-18] MEDS: acetaminophen 325 mg Tablet 650 MG PO ×2 (10:35→18:51)
[2020-08-18 14:00] VITALS: BP 103/51; PULSE 75; RESP 20; TEMP 36.7; O2SAT 18
--- NOTE | 2020-08-18 16:13 | PM.NPN ---
Subjective NPU Subjective: Interval history: Continues to deny any interval complaints Patient pleased to find out that he is scheduled for post discharge care Denies any interval psychotic symptoms Denies any interval depressive symptoms, denies any suicidal ideation Continues to refuse Abilify but is compliant with his antibiotic No reports of any behavioral disturbances Mental Status Exam MSE Comments: Lying in bed, appropriately groomed and dressed, calm, cooperative, interactive, good eye contact Psychomotor activity is neither increased nor decreased, no agitation Speech is normal rate and volume, spontaneous, clear articulation, not pressured Good, full range, not labile Alert and oriented to person, place, time, situation Memory and concentration appear to be intact per interview Thought process, linear Thought content, no delusions, no hallucinations, no suicidal or homicidal ideation Insight and judgment appear to be fair to intact Vitals/I&O/Wt Last Vital Signs Temp 98.1 F 08/18/20 14:00 Pulse 75 08/18/20 14:00 Resp 20 H 08/18/20 14:00 BP 103/51 08/18/20 14:00 Pulse Ox 18 L 08/18/20 14:00 Weight last 48 hrs Weight 77.111 kg Data NPU : 08/10/20 20:05 08/10/20 20:05 A&P Assessment and plan (1) Psychosis: Status: Acute Qualifiers: Psychosis type: unspecified psychosis type Qualified Code(s): F29 - Unspecified psychosis not due to a substance or known physiological condition (2) Balanitis: Status: Acute (3) UTI (urinary tract infection): Status: Acute Qualifiers: Urinary tract infection type: urethritis Qualified Code(s): N34.2 - Other urethritis (4) Depression: Status: Acute Qualifiers: Active/Remission status: currently active Depression Type: major depressive disorder Major depression episode severity: moderate Major depression recurrence: single episode Qualified Code(s): F32.1 - Major depressive disorder, single episode, moderate (5) Methamphetamine dependence: Status: Acute Additional A&P Information Patient continues to be improved, denies any interval mood or psychotic symptoms, intermittent cravings for substance Continues to refuse Abilify, compliant with antibiotic, denies any urinary symptoms CONTINUE current medication, continue to monitor Involuntary Hold Information 96 Hour Hold: 96 Hour Involuntary Admission: No Attestations NPU Medical Necessity Statement*: Continues require psychiatric hospitalization for safe discharge including coordination for post discharge care Coding 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
[2020-08-18 19:44] VITALS: BP 119/79; PULSE 88; RESP 18; TEMP 36.4; O2SAT 98
[2020-08-19] MEDS: acetaminophen 325 mg Tablet 650 MG PO ×2 (00:47→17:32)
[2020-08-19] MEDS: hyDROXYzine 25 mg Capsule 50 MG PO (00:53)
[2020-08-19] MEDS: levoFLOXacin 500 mg Tablet PO (06:18)
[2020-08-19 06:25] VITALS: BP 109/60; PULSE 68; RESP 18; TEMP 36.4; O2SAT 95
--- NOTE | 2020-08-19 13:41 | PM.NPN ---
Subjective NPU Subjective: Interval history: Continues to deny any interval symptoms Denies any depressive symptoms, denies any interval suicidal ideation Denies any interval manic or hypomanic symptoms Denies any interval psychotic symptoms Continues to refuse Abilify No reported interval behavioral disturbances Looks forward to discharge tomorrow Mental Status Exam MSE Comments: Lying in floor in dayroom, appropriately groomed and dressed, calm, cooperative, interactive, good eye contact Psychomotor activity is neither increased nor decreased, no agitation Speech is normal rate and volume, spontaneous, clear articulation, not pressured I feel great, smiles appropriately at times, full range, not labile Alert and oriented to person, place, time, situation Memory and concentration appear to be intact per interview Thought process, linear Thought content, no delusions, no hallucinations, no suicidal or homicidal ideation Insight and judgment appear to be fair to intact Vitals/I&O/Wt Last Vital Signs Temp 97.5 F L 08/19/20 06:25 Pulse 68 08/19/20 06:25 Resp 18 08/19/20 06:25 BP 109/60 08/19/20 06:25 Pulse Ox 95 08/19/20 06:25 Data NPU : 08/10/20 20:05 08/10/20 20:05 Involuntary Hold Information 96 Hour Hold: 96 Hour Involuntary Admission: No Attestations NPU Medical Necessity Statement*: Continues to require psychiatric hospitalization for coordination of safe discharge Coding Level of Care 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
[2020-08-19 14:00] VITALS: BP 106/63; PULSE 110; RESP 20; TEMP 37.1; O2SAT 97
[2020-08-19 20:45] VITALS: BP 103/62; PULSE 81; RESP 16; TEMP 36.9; O2SAT 98
[2020-08-20 06:00] VITALS: BP 113/60; PULSE 63; RESP 18; TEMP 37.2; O2SAT 97
[2020-08-20] MEDS: levoFLOXacin 500 mg Tablet PO (06:40)
--- NOTE | 2020-08-20 09:11 | PM.NDC ---
Diagnoses at Discharge Discharge Diagnosis (1) Psychosis: Status: Acute Qualifiers: Psychosis type: unspecified psychosis type Qualified Code(s): F29 - Unspecified psychosis not due to a substance or known physiological condition (2) Balanitis: Status: Acute (3) UTI (urinary tract infection): Status: Acute Qualifiers: Urinary tract infection type: urethritis Qualified Code(s): N34.2 - Other urethritis (4) Depression: Status: Acute Qualifiers: Active/Remission status: currently active Depression Type: major depressive disorder Major depression episode severity: moderate Major depression recurrence: single episode Qualified Code(s): F32.1 - Major depressive disorder, single episode, moderate (5) Methamphetamine dependence: Status: Acute Reason for Visit Reason for Visit: discharge,burning with urination Hospital Course Hospital Course 30-year-old male patient presents to the emergency department with complaint of burning urination and requesting help due to depression symptoms, suicidal ideations and thoughts. 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 Patient continued to report depressive symptoms at the time of admission with recent substance use. There were also questions with regards to his psychotic symptoms which may have been related to either underlying mood symptoms or substance use. Patient also noted to have balanitis and urinary tract infection was started on Levaquin with good effect. Patient also started on Abilify which was titrated up initially to 10 mg daily and subsequently tapered down to Abilify 5 mg daily although patient discontinued this medication secondary to concerns about side effects although patient did not articulate well his concerns other than feeling groggy. Patient participated in unit milieu with no reports of any behavioral disturbances. Patient remained future oriented and denied any suicidal ideation throughout the course of his hospital stay and was able to coordinate for post discharge substance treatment. Patient was not suicidal at the time of discharge and did not pose an imminent threat of harm to self or others. Low to moderate risk of harm to self given no current suicidal ideation and no current reported psychiatric symptoms although patient's risk may be elevated if he continues to abuse substances or is noncompliant with his medication or medication management follow-up for substance counseling which may lead to unexpected, impulsive behavior. Risk mitigation included psychiatric admission for observation and medication stabilization as well as coordination for safe discharge including post discharge substance treatment and post discharge psychiatric follow-up as well as recommendation to abstain from the use of substances and alcohol. Patient was able to communicate his understanding of the need to abstain from the use of substances and alcohol as well as the need for compliance with his medication, medication management and substance treatment follow-up in order to further mitigate his risk of harm to self and others. Involuntary Hold Information 96 Hour Hold: 96 Hour Involuntary Admission: No Mental Status Exam MSE Comments: Sitting in day room, appropriately groomed and dressed, calm, cooperative, interactive, good eye contact Psychomotor activity is neither increased nor decreased, no agitation Speech is normal rate and volume, spontaneous, clear articulation, not pressured Excited, smiles appropriately at times, full range, not labile Alert and oriented to person, place, time, situation Memory and concentration appear to be intact per interview Thought process, linear Thought content, no delusions, no hallucinations, no suicidal or homicidal ideation Insight and judgment appear to be fair to intact Discharge Data Vitals: Last Vital Signs Temp 99.0 F 08/20/20 06:00 Pulse 63 08/20/20 06:00 Resp 18 08/20/20 06:00 BP 113/60 08/20/20 06:00 Pulse Ox 97 08/20/20 06:00 Discharge Plan Discharge Patient Disposition: Home Condition: Stable Prescriptions: New levofloxacin 500 mg Tablet 500 mg PO Q24H Qty: 5 RF: 0 aripiprazole 10 mg Tablet 5 mg PO DAILY Qty: 30 RF: 0 Discharge Orders: Discharge Order (Routine); Ordered 08/20/20 Ordered By: Lisa Figueroa Referrals: [facility] [Other] (Phone numbers: [facility] [phone] [facility] ([facility]) [phone] Dustin [phone] Don't forget to call your PO October after you arrive and update her. 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
[2020-08-20 09:22] VITALS: BP 113/60; PULSE 63; RESP 18; TEMP 37.2; O2SAT 97
== END 2020-08-20 10:05 | disposition home or self-care (01) | DRG 885 ==
LOC: ER 19:45 → NP 22:21
PROVIDERS: Emergency Medicine; Internal Medicine; Admitting Provider Psychiatry & Neurology Psychiatry; Emergency Provider Nurse Practitioner Family; Visit Provider Psychiatry & Neurology Psychiatry
DX: F29 Unspecified psychosis not due to a substance or known physiological condition (principal); R45.851 Suicidal ideations; F15.20 Other stimulant dependence, uncomplicated; F90.9 Attention-deficit hyperactivity disorder, unspecified type; Z59.0 Homelessness; F17.210 Nicotine dependence, cigarettes, uncomplicated; F10.10 Alcohol abuse, uncomplicated; N34.2 Other urethritis; N48.1 Balanitis; F31.32 Bipolar disorder, current episode depressed, moderate
CPT/HCPCS: 12345; 36415; 80053; 80074; 80306; 80307; 81001; 85025; 86592; 87086; 87491; 87591; 87806; 93005; 96372; 99284; J0696; Q0144